=== PATIENT | female | born 1935 | race Caucasian/White ===

== ENCOUNTER 2019-04-10 15:36 | Emergency (ER) | payer OTHER, MEDICARE ==
[~2019-04-10] VITALS: Ht 167.6 cm; Wt 61.8 kg
[2019-04-10 16:13] LABS: BASOPHILS % (AUTO) 0.6 % (0-1); EOSINOPHILS # (AUTO) 0.1 X10'3 (0-0.9); EOSINOPHILS % (AUTO) 3.2 % (0-6); HEMATOCRIT 39.1 % (35.0-45.0); HEMOGLOBIN 13.5 g/dl (12.0-16.0); LYMPHOCYTES # (AUTO) 1.5 X10'3 (1.1-4.8); LYMPHOCYTES % (AUTO) 32.2 % (21-51); MEAN CORPUSCULAR HEMOGLOBIN 30.5 PG (27.0-31.0); MEAN CORPUSCULAR HGB CONC 34.5 g/dL (33.0-36.5); MEAN CORPUSCULAR VOLUME 88.2 FL (78-98); MEAN PLATELET VOLUME 7.3 FL (7.4-10.4); MONOCYTES # (AUTO) 0.4 X10'3 (0-0.9); MONOCYTES % (AUTO) 7.8 % (2-12); NEUTROPHILS # (AUTO) 2.6 X10'3 (1.8-7.7); NEUTROPHILS % (AUTO) 56.2 % (42-75); PLATELET COUNT 271 X10'3 (140-440); RED BLOOD COUNT 4.44 X10'6 (4.20-5.60); RED CELL DISTRIBUTION WIDTH 13.7 % (11.5-14.5); WHITE BLOOD COUNT 4.6 X10'3 (4.5-11.0)
[2019-04-10 16:28] LABS: PARTIAL THROMBOPLASTIN TIME 24 SECONDS (22-32)
[2019-04-10 16:31] LABS: ANION GAP 8 (8-16); BILIRUBIN,TOTAL 0.3 MG/DL (0.1-1.0); BLOOD UREA NITROGEN 21 MG/DL (7-18); BUN/CREATININE RATIO 20.8 (6.6-38.0); CALCIUM 9.3 MG/DL (8.5-10.1); CHLORIDE 102 MMOL/L (99-107); CREATININE 1.01 MG/DL (0.40-0.90); GLUCOSE 176 MG/DL (70-104); POTASSIUM 3.7 MMOL/L (3.5-5.1); SODIUM 139 MMOL/L (135-145); TOTAL CARBON DIOXIDE 29.1 MMOL/L (24-32); eGFR 52 ML/MIN
[2019-04-10 16:32] LABS: ALANINE AMINOTRANSFERASE 27 U/L (12-78); ALBUMIN 3.7 G/DL (3.4-5.0); ALKALINE PHOSPHATASE 28 IU/L (46-116); ASPARTATE AMINO TRANSFERASE 26 U/L (10-37); TOTAL PROTEIN 7.3 G/DL (6.4-8.2)
[2019-04-10] MEDS ORDERED: ondansetron/PF 4mg/2ml inj IV ONE (18:30)
[2019-04-10] MEDS ORDERED: normal saline 1000ML IV soln IVB ONE (18:30)
[2019-04-10] MEDS ORDERED: LORazepam 2 mg/ml vial IV ONE (18:30)
[2019-04-10] MEDS ORDERED: TRAM50TA2 PO (20:02)
[2019-04-10] MEDS ORDERED: CYCL-1 PO (20:02)
[2019-04-10] MEDS ORDERED: NAPR-56 PO (20:02)
[2019-04-10 20:25] VITALS: BP 142/63
== END 2019-04-10 20:27 | disposition home or self-care (01) ==
LOC: ER 15:36
DX: M62.830 Muscle spasm of back (principal); M54.6 Pain in thoracic spine; R07.89 Other chest pain; Z88.1 Allergy status to other antibiotic agents; Z88.8 Allergy status to other drugs, medicaments and biological substances; Z79.899 Other long term (current) drug therapy; W01.0XXA Fall on same level from slipping, tripping and stumbling without subsequent striking against object, initial encounter; Y93.89 Activity, other specified; Y92.89 Other specified places as the place of occurrence of the external cause; Y99.8 Other external cause status
CPT/HCPCS: 36415; 70450; 71045; 72125; 72128; 80053; 84484; 85025; 85610; 85730; 93005; 96374; 96375; 99284; J2060; J2405; J7030

== ENCOUNTER 2019-07-30 09:45 | Day surgery (SDC) | payer OTHER ==
[2019-07-29 10:38] LABS: BASOPHILS % (AUTO) 0.7 % (0-1); EOSINOPHILS # (AUTO) 0.1 X10'3 (0-0.9); EOSINOPHILS % (AUTO) 3.5 % (0-6); HEMATOCRIT 42.7 % (35.0-45.0); HEMOGLOBIN 14.5 g/dl (12.0-16.0); LYMPHOCYTES % (AUTO) 26.3 % (21-51); MEAN CORPUSCULAR HEMOGLOBIN 28.9 PG (27.0-31.0); MEAN CORPUSCULAR HGB CONC 33.9 g/dL (33.0-36.5); MEAN CORPUSCULAR VOLUME 85.3 FL (78-98); MEAN PLATELET VOLUME 7.5 FL (7.4-10.4); MONOCYTES # (AUTO) 0.4 X10'3 (0-0.9); MONOCYTES % (AUTO) 9.8 % (2-12); NEUTROPHILS # (AUTO) 2.3 X10'3 (1.8-7.7); NEUTROPHILS % (AUTO) 59.7 % (42-75); PLATELET COUNT 260 X10'3 (140-440); RED BLOOD COUNT 5.01 X10'6 (4.20-5.60); RED CELL DISTRIBUTION WIDTH 13.6 % (11.5-14.5); WHITE BLOOD COUNT 3.8 X10'3 (4.5-11.0)
[2019-07-29 10:47] LABS: PARTIAL THROMBOPLASTIN TIME 26 SECONDS (22-32)
[2019-07-29 10:50] LABS: ALBUMIN 3.8 G/DL (3.4-5.0); ANION GAP 6 (8-16); BLOOD UREA NITROGEN 20 MG/DL (7-18); BUN/CREATININE RATIO 25.3 (6.6-38.0); CALCIUM 9.5 MG/DL (8.5-10.1); CHLORIDE 103 MMOL/L (99-107); CREATININE 0.79 MG/DL (0.40-0.90); GLUCOSE 127 MG/DL (70-104); POTASSIUM 3.7 MMOL/L (3.5-5.1); SODIUM 142 MMOL/L (135-145); TOTAL CARBON DIOXIDE 32.7 MMOL/L (24-32); eGFR 69 ML/MIN
[~2019-07-30] VITALS: Ht 167.6 cm; Wt 61.5 kg
[2019-07-30] VITALS (10 sets, daily range): BP systolic 116–161; BP diastolic 56–92
[~2019-07-30 09:45] MED LIST: CYCL-1 PO
[2019-07-30] MEDS ORDERED: ceFAZolin inj. 2,000 MG in dextrose 5%-water 100 ML IV ONE (10:20)
[2019-07-30] MEDS ORDERED: METF500T20 PO (11:24)
[2019-07-30] MEDS ORDERED: ASPI81TA52 PO (11:24)
[2019-07-30] MEDS ORDERED: MV-M1TAB19 PO (11:24)
[2019-07-30] MEDS ORDERED: CARV6.253 PO (11:24)
[2019-07-30] MEDS ORDERED: ESOM40CA49 PO (11:24)
[2019-07-30] MEDS ORDERED: BIOT5000 PO (11:24)
[2019-07-30] MEDS ORDERED: LISI1TAB28 PO (11:24)
[2019-07-30] MEDS ORDERED: NITR0.4T51 SL (11:24)
[2019-07-30] MEDS ORDERED: OMEG1CAP2 PO (11:24)
[2019-07-30] MEDS ORDERED: ROSU10TA2 PO (11:24)
[2019-07-30] MEDS ORDERED: MELO-102 PO (11:24)
[2019-07-30] MEDS ORDERED: FLEC100T2 PO (11:24)
[2019-07-30] MEDS ORDERED: MULT-1141 PO (11:24)
[2019-07-30] MEDS ORDERED: LIDOcaine 1% W/epiNEPHrine 1:100,000 20ml vial ONE (13:39)
[2019-07-30] MEDS ORDERED: midazolam 2 mg/2 ml injection ONE (13:39)
[2019-07-30] MEDS ORDERED: fentaNYL/PF 50MCG/1 ML 2ML syringe ONE (13:39)
== END 2019-07-30 19:28 | disposition home or self-care (01) ==
LOC: SSTAY O 09:45
PROVIDERS: ATTEND Internal Medicine Cardiovascular Disease
DX: Z45.010 Encounter for checking and testing of cardiac pacemaker pulse generator [battery] (principal); I25.10 Atherosclerotic heart disease of native coronary artery without angina pectoris; I10 Essential (primary) hypertension; E78.5 Hyperlipidemia, unspecified; I49.5 Sick sinus syndrome; Z79.899 Other long term (current) drug therapy; Z79.82 Long term (current) use of aspirin; Z79.01 Long term (current) use of anticoagulants
CPT/HCPCS: 33228; 36415; 80048; 82948; 85025; 85610; 85730; 93005; 99152; 99153; C1785; J2250; J3010; A4620; A6449

== ENCOUNTER 2020-07-06 20:53 | Emergency (ER) | payer OTHER ==
[~2020-07-06] VITALS: Ht 167.6 cm; Wt 65.0 kg
[~2020-07-06 20:53] MED LIST changes: +ASPI81TA52 PO; +BIOT5000 PO; +CARV6.253 PO; -CYCL-1 PO; +ESOM40CA49 PO; +FLEC100T2 PO; +LISI1TAB51 PO; +MELO-102 PO; +METF-900 PO; +MULT-1141 PO; +MV-M1TAB19 PO; +NITR0.4T51 SL; +OMEG1CAP2 PO; +ROSU10TA2 PO
--- NOTE | 2020-07-06 20:58 | NUR ---
MAYELA SÁNCHEZ(DAUGHTER)[phone] PLEASE CONTACT WITH UPDATES WHEN AVAILABLE TO DO SO
[2020-07-06 21:39] LABS: BASOPHILS % (AUTO) 0.4 % (0-1); EOSINOPHILS # (AUTO) 0.2 X10'3 (0-0.9); EOSINOPHILS % (AUTO) 1.8 % (0-6); HEMATOCRIT 41.3 % (35.0-45.0); HEMOGLOBIN 13.7 g/dl (12.0-16.0); LYMPHOCYTES # (AUTO) 1.5 X10'3 (1.1-4.8); LYMPHOCYTES % (AUTO) 15.5 % (21-51); MEAN CORPUSCULAR HEMOGLOBIN 29.3 PG (27.0-31.0); MEAN CORPUSCULAR HGB CONC 33.2 g/dL (33.0-36.5); MEAN CORPUSCULAR VOLUME 88.1 FL (78-98); MEAN PLATELET VOLUME 7.3 FL (7.4-10.4); MONOCYTES # (AUTO) 0.7 X10'3 (0-0.9); MONOCYTES % (AUTO) 7.4 % (2-12); NEUTROPHILS # (AUTO) 7.3 X10'3 (1.8-7.7); NEUTROPHILS % (AUTO) 74.9 % (42-75); PLATELET COUNT 262 X10'3 (140-440); RED BLOOD COUNT 4.69 X10'6 (4.20-5.60); RED CELL DISTRIBUTION WIDTH 13.7 % (11.5-14.5); WHITE BLOOD COUNT 9.8 X10'3 (4.5-11.0)
[2020-07-06 21:52] LABS: ALANINE AMINOTRANSFERASE 22 U/L (12-78); ALBUMIN 3.5 G/DL (3.4-5.0); ALBUMIN/GLOBULIN RATIO 0.9 (1.1-1.5); ALKALINE PHOSPHATASE 47 IU/L (46-116); ANION GAP 7 (8-16); ASPARTATE AMINO TRANSFERASE 15 U/L (10-37); BILIRUBIN,TOTAL 0.3 MG/DL (0.1-1.0); BLOOD UREA NITROGEN 25 MG/DL (7-18); BUN/CREATININE RATIO 28.1 (6.6-38.0); CALCIUM 9.5 MG/DL (8.5-10.1); CHLORIDE 102 MMOL/L (99-107); CREATININE 0.89 MG/DL (0.40-0.90); GLUCOSE 176 MG/DL (70-104); LIPASE 188 U/L (73-393); POTASSIUM 4.3 MMOL/L (3.5-5.1); SODIUM 139 MMOL/L (135-145); TOTAL CARBON DIOXIDE 29.8 MMOL/L (24-32); TOTAL PROTEIN 7.2 G/DL (6.4-8.2); eGFR 60 ML/MIN
[2020-07-06 22:41] LABS: CLARITY,URINE CLEAR (Clear); COLOR,URINE YELLOW (Yellow); GLUCOSE, URINE NEGATIVE (Neg); KETONES,URINE TRACE mg/dl (Neg); LEUKOCYTE ESTERASE ,URINE TRACE (Neg); NITRITES, URINE NEGATIVE (Neg); OCCULT BLOOD,URINE NEGATIVE (Neg); PH,URINE 5.5 (4.8-8.0); PROTEIN,URINE NEGATIVE (Neg); UA COLLECTION TYPE CLN CATCH MIDSTREAM; UROBILINOGEN,URINE 0.2 E.U/dL (0.2-1.0)
[2020-07-06 22:48] LABS: BACTERIA,URINE NONE SEEN /HPF (Neg); RBC,URINE NONE SEEN /HPF (0-2); SQUAMOUS EPITHELIAL CELL,UR FEW /LPF (FEW); WBC,URINE 0-4 /HPF (0-4)
[2020-07-06] MEDS ORDERED: ondansetron/PF 4mg/2ml inj IV ONE (22:55)
[2020-07-06] MEDS ORDERED: morphine 4 MG/ML inj SYRINge IV ONE (22:55)
[2020-07-06] MEDS ORDERED: diphenhydrAMINE 50 mg/ml inj IV ONE (23:10)
[2020-07-07] MEDS ORDERED: piperacillin/tazo 3.375gm/50ml 50 ML IV ONE (00:25)
[2020-07-07] MEDS ORDERED: HYDROcodone/acetaminophen 5mg/325mg tablet PO ONE (00:45)
[2020-07-07] MEDS ORDERED: normal saline 1000ml 1,000 ML IV ONE (00:45)
[2020-07-07] MEDS ORDERED: ketorolac trometh. 30mg/ml inj. IV ONE (00:45)
[2020-07-07] MEDS ORDERED: fentaNYL/PF 50MCG/1 ML 2ML syringe IV ONE (02:10)
[2020-07-07] MEDS ORDERED: AMOX-117 PO (03:09)
[2020-07-07] MEDS ORDERED: HYDR-3965 PO (03:09)
[2020-07-07] MEDS ORDERED: ONDA4TAB6 PO (03:09)
[2020-07-07 03:54] VITALS: BP 114/55
== END 2020-07-07 03:57 | disposition home or self-care (01) ==
LOC: ER 20:54
DX: K57.92 Diverticulitis of intestine, part unspecified, without perforation or abscess without bleeding (principal); I48.91 Unspecified atrial fibrillation; K21.9 Gastro-esophageal reflux disease without esophagitis; I10 Essential (primary) hypertension; E11.9 Type 2 diabetes mellitus without complications; G89.29 Other chronic pain; Z90.49 Acquired absence of other specified parts of digestive tract; Z88.8 Allergy status to other drugs, medicaments and biological substances; Z88.5 Allergy status to narcotic agent; Z88.1 Allergy status to other antibiotic agents; Z79.82 Long term (current) use of aspirin; Z79.84 Long term (current) use of oral hypoglycemic drugs; Z79.899 Other long term (current) drug therapy
CPT/HCPCS: 36415; 74176; 80053; 81001; 83690; 85025; 87088; 96361; 96365; 96375; 99285; J1200; J1885; J2270; J2405; J2543; J3010; J7030

== ENCOUNTER 2021-04-18 10:47 | Inpatient (IN) | payer OTHER ==
[~2021-04-18] VITALS: Ht 167.6 cm; Wt 62.7 kg
[~2021-04-18 10:47] MED LIST changes: +CARV12.545 PO; -CARV6.253 PO; +CHOL100025 PO; -ESOM40CA49 PO; +GABA300C PO; +HYDR25TA5 PO; -LISI1TAB51 PO; -MELO-102 PO; -MV-M1TAB19 PO; +PANT40TA54 PO; +POTA-197 PO
[2021-04-18 11:34] LABS: BASOPHILS % (AUTO) 0.4 % (0-1); EOSINOPHILS # (AUTO) 0.1 X10'3 (0-0.9); EOSINOPHILS % (AUTO) 1.1 % (0-6); HEMATOCRIT 43.7 % (35.0-45.0); HEMOGLOBIN 15.1 g/dl (12.0-16.0); LYMPHOCYTES # (AUTO) 1.2 X10'3 (1.1-4.8); LYMPHOCYTES % (AUTO) 15.7 % (21-51); MEAN CORPUSCULAR HEMOGLOBIN 29.7 PG (27.0-31.0); MEAN CORPUSCULAR HGB CONC 34.5 g/dL (33.0-36.5); MEAN CORPUSCULAR VOLUME 86.3 FL (78-98); MEAN PLATELET VOLUME 7.2 FL (7.4-10.4); MONOCYTES # (AUTO) 0.5 X10'3 (0-0.9); MONOCYTES % (AUTO) 6.6 % (2-12); NEUTROPHILS % (AUTO) 76.2 % (42-75); PLATELET COUNT 295 X10'3 (140-440); RED BLOOD COUNT 5.06 X10'6 (4.20-5.60); RED CELL DISTRIBUTION WIDTH 13.5 % (11.5-14.5); WHITE BLOOD COUNT 7.9 X10'3 (4.5-11.0)
[2021-04-18 11:42] LABS: ALANINE AMINOTRANSFERASE 21 U/L (12-78); ALBUMIN 4.1 G/DL (3.4-5.0); ALBUMIN/GLOBULIN RATIO 1.1 (1.1-1.5); ALKALINE PHOSPHATASE 41 IU/L (46-116); ANION GAP 8 (8-16); ASPARTATE AMINO TRANSFERASE 18 U/L (10-37); BILIRUBIN,TOTAL 0.5 MG/DL (0.1-1.0); BLOOD UREA NITROGEN 21 MG/DL (7-18); BUN/CREATININE RATIO 23.6 (6.6-38.0); CHLORIDE 101 MMOL/L (99-107); CREATININE 0.89 MG/DL (0.40-0.90); GLUCOSE 160 MG/DL (70-104); LIPASE 133 U/L (73-393); POTASSIUM 4.7 MMOL/L (3.5-5.1); SODIUM 138 MMOL/L (135-145); TOTAL CARBON DIOXIDE 28.9 MMOL/L (24-32); eGFR 60 ML/MIN
--- NOTE | 2021-04-18 14:00 | NUR ---
Pt c/o n/v and abd pain (shavonne umbilical) x several hours.
[2021-04-18] MEDS ORDERED: pantoprazole 40 MG vial IV ONE (14:55)
[2021-04-18] MEDS ORDERED: normal saline 1000ML IV soln IVB ONE (14:55)
[2021-04-18] MEDS ORDERED: morphine 2 MG/ML inj. syringe IV PRN ×2 (14:55→18:00)
[2021-04-18] MEDS ORDERED: iohexol 300mg/ml 100ml inj. ONE (15:21)
[2021-04-18] MEDS ORDERED: MESSAGE TO NURSING PO ONE (15:45)
[2021-04-18 17:40] LABS: COLOR,URINE Yellow (Yellow); UA COLLECTION TYPE STRAIGHT CATH
[2021-04-18 17:41] LABS: CLARITY,URINE CLEAR (Clear); GLUCOSE, URINE Negative (Neg); KETONES,URINE Negative (Neg); LEUKOCYTE ESTERASE ,URINE NEGATIVE (Neg); NITRITES, URINE NEGATIVE (Neg); OCCULT BLOOD,URINE Trace (Neg); PROTEIN,URINE Negative (Neg); UROBILINOGEN,URINE 0.2 E.U/dL (0.2-1.0)
[2021-04-18 17:49] LABS: BACTERIA,URINE NONE SEEN /HPF (Neg); RBC,URINE 0-2 /HPF (0-2); SQUAMOUS EPITHELIAL CELL,UR FEW /LPF (FEW); WBC,URINE NONE SEEN /HPF (0-4)
[2021-04-18] MEDS ORDERED: potassium Cl 40MEQ/1/2NS 520ml 520 ML IV PRN ×2 (18:00)
[2021-04-18] MEDS ORDERED: magnesium 4gm in 100ml NS 100 ML IV PRN (18:00)
[2021-04-18] MEDS ORDERED: magnesium hydroxide 30ml (MOM) UD suspension PO PRN (18:00)
[2021-04-18] MEDS ORDERED: mag hydrox/Alum hydrox/simeth 30ml oral suspension PO PRN (18:00)
[2021-04-18] MEDS ORDERED: potassium Cl 20 mEq SR tablet PO PRN ×2 (18:00)
[2021-04-18] MEDS ORDERED: magnesium Cl slow-release 64mg tablet PO PRN (18:00)
[2021-04-18] MEDS ORDERED: acetaminophen 325mg tablet PO PRN (18:00)
[2021-04-18] MEDS ORDERED: magnesium 2GM in 50ml NS 50 ML IV PRN (18:00)
[2021-04-18] MEDS ORDERED: dextrose ORAL solution 15 GM/59 ML bottle PO PRN ×2 (18:10)
[2021-04-18] MEDS ORDERED: glucagon, human recombinant 1mg kit SUBCUT PRN (18:10)
[2021-04-18] MEDS ORDERED: dextrose 50%-water 50ml dispensing syringe IV PRN ×2 (18:10)
[2021-04-18] MEDS ORDERED: MESSAGE TO PHARMACY PO ONE (18:10)
[2021-04-18] MEDS ORDERED: insulin Lispro (HumaLOG) vial - multi-dose SQ SCH (18:10)
[2021-04-18 18:34] LABS: HEMOGLOBIN A1C 7.1 % (4.5-6.2)
[2021-04-18] MEDS ORDERED: MELO-102 PO (19:19)
[2021-04-18] MEDS ORDERED: LISI1TAB51 PO (19:19)
[2021-04-18] MEDS: dextrose 5%-1/2 normal saline 1,000 ML IV SCH (19:25)
[2021-04-18] MEDS ORDERED: HYDROmorphone inj. 0.5 MG/0.5 ML DISP.SYRIN IV ONE (19:30)
[2021-04-18] MEDS: ondansetron/PF 4mg/2ml inj IV PRN (19:43)
[2021-04-18] MEDS: K and/or MAG REPLACEMENT MC SCH (20:00)
[2021-04-18] MEDS: insulin glargine (Lantus) pen - multi-dose SQ SCH (20:02)
[2021-04-18] MEDS: enoxaparin 40mg/0.4ml syringe SQ SCH (21:29)
[2021-04-18] MEDS: docusate sod 100mg capsule PO SCH (21:29)
--- NOTE | 2021-04-18 22:43 | NUR ---
Attempted to give report to Surg Floor. Nurse is with another patient. He will return my call.
--- NOTE | 2021-04-18 22:56 | NUR ---
Report given to ANUSHKA Carey on the Surg Floor.
[2021-04-19] VITALS: BP 115/58
[2021-04-19] MEDS: ondansetron/PF 4mg/2ml inj IV PRN (03:53)
--- NOTE | 2021-04-19 05:00 | NUR ---
Patient [id number]. C/O abdominal pain 9/10 and nausea and vomiting. Medicated x 1 with Zofran and Morphine with positive result. Abdomen lightly distended, bowel sounds present but not passing gas reported by patient. BS 162 on admission. Status NPO and patient made aware. Safety and comfort measures maintained. Will continue to monitor as per plan of care.
[2021-04-19 06:00] VITALS: BP 105/50
[2021-04-19 07:59] LABS: BASOPHILS % (AUTO) 0.4 % (0-1); EOSINOPHILS % (AUTO) 0.3 % (0-6); LYMPHOCYTES # (AUTO) 1.5 X10'3 (1.1-4.8); LYMPHOCYTES % (AUTO) 23.7 % (21-51); MEAN CORPUSCULAR HEMOGLOBIN 29.4 PG (27.0-31.0); MEAN CORPUSCULAR HGB CONC 34.1 g/dL (33.0-36.5); MEAN CORPUSCULAR VOLUME 86.1 FL (78-98); MEAN PLATELET VOLUME 7.6 FL (7.4-10.4); MONOCYTES # (AUTO) 0.7 X10'3 (0-0.9); MONOCYTES % (AUTO) 10.2 % (2-12); NEUTROPHILS # (AUTO) 4.2 X10'3 (1.8-7.7); NEUTROPHILS % (AUTO) 65.4 % (42-75); PLATELET COUNT 253 X10'3 (140-440); RED BLOOD COUNT 4.76 X10'6 (4.20-5.60); RED CELL DISTRIBUTION WIDTH 13.6 % (11.5-14.5); WHITE BLOOD COUNT 6.5 X10'3 (4.5-11.0)
[2021-04-19] MEDS: docusate sod 100mg capsule PO SCH ×2 (08:00→20:10)
[2021-04-19] MEDS: K and/or MAG REPLACEMENT MC SCH ×2 (08:00→20:00)
[2021-04-19 08:37] LABS: ALANINE AMINOTRANSFERASE 16 U/L (12-78); ALBUMIN 3.3 G/DL (3.4-5.0); ALKALINE PHOSPHATASE 40 IU/L (46-116); ANION GAP 11 (8-16); ASPARTATE AMINO TRANSFERASE 15 U/L (10-37); BILIRUBIN,TOTAL 0.5 MG/DL (0.1-1.0); BLOOD UREA NITROGEN 25 MG/DL (7-18); BUN/CREATININE RATIO 27.2 (6.6-38.0); CALCIUM 8.9 MG/DL (8.5-10.1); CHLORIDE 104 MMOL/L (99-107); CHOLESTEROL 127 MG/DL (0-200); CREATININE 0.92 MG/DL (0.40-0.90); GLUCOSE 164 MG/DL (70-104); HDL CHOLESTEROL 43 MG/DL (35-60); LDL CHOLESTEROL 63 MG/DL (50-100); MAGNESIUM 1.7 MG/DL (1.5-2.4); SODIUM 140 MMOL/L (135-145); TOTAL CARBON DIOXIDE 25.3 MMOL/L (24-32); TOTAL PROTEIN 6.6 G/DL (6.4-8.2); TRIGLYCERIDES 146 MG/DL (20-135); eGFR 58 ML/MIN
--- NOTE | 2021-04-19 09:53 | NUR ---
Diabetes Consult: A1C 7.1 well controlled and appropriate for age, DM education not indicated at this time, will continue to monitor. Addendum: 04/19/21 at [address] Amended: Links added.
[2021-04-19 10:00] VITALS: BP 103/53
--- NOTE | 2021-04-19 10:00 | NUR ---
Dr Snider: okay to hold insulin under blood glucose of 200
[2021-04-19] MEDS: dextrose 5%-1/2 normal saline 1,000 ML IV SCH ×2 (10:54→20:10)
--- NOTE | 2021-04-19 15:29 | NUR ---
PAGER ID: [phone] MESSAGE: Rodrigo Levi, Lazaro: need pain meds ordered still
[2021-04-19] MEDS ORDERED: fentaNYL/PF 50MCG/1 ML 2ML syringe IV PRN (15:45)
[2021-04-19] MEDS: HYDROmorphone/PF 0.2 MG/ML SYRINGE IV PRN ×3 (16:42→23:06)
--- NOTE | 2021-04-19 16:55 | NUR ---
PAGER ID: [phone] MESSAGE: [id number] Amita Lazaro: iv infiltrated.. can we do one time im toradol? She is a hard iv stick and is in a lot of pain 03/04
[2021-04-19] MEDS ORDERED: ketorolac tromethamine 15mg/ml inj. IV ONE (17:05)
[2021-04-19 20:00] VITALS: BP 118/51
[2021-04-19] MEDS: enoxaparin 40mg/0.4ml syringe SQ SCH (20:14)
[2021-04-19] MEDS: insulin glargine (Lantus) pen - multi-dose SQ SCH (21:00)
[2021-04-20 00:06] VITALS: BP 105/47
[2021-04-20] MEDS: HYDROmorphone/PF 0.2 MG/ML SYRINGE IV PRN ×2 (05:20→11:43)
--- NOTE | 2021-04-20 05:49 | NUR ---
In bed C/O abdominal pain #9/10 medicated x 2 during shift. Abdomen tender to touch, bowel sounds present, no passing gas reported , but patient verbalized some relief from the abdomen sourness compare to yesterday 04/19/2021. No C/O nausea and vomiting at this time. No S/S of hypo/hyperglycemic reaction at this time. Safety and comfort measures maintained. Will continue
[2021-04-20 06:14] LABS: BASOPHILS % (AUTO) 0.3 % (0-1); EOSINOPHILS # (AUTO) 0.1 X10'3 (0-0.9); EOSINOPHILS % (AUTO) 1.3 % (0-6); HEMATOCRIT 39.4 % (35.0-45.0); HEMOGLOBIN 13.3 g/dl (12.0-16.0); LYMPHOCYTES # (AUTO) 1.3 X10'3 (1.1-4.8); LYMPHOCYTES % (AUTO) 23.2 % (21-51); MEAN CORPUSCULAR HEMOGLOBIN 29.3 PG (27.0-31.0); MEAN CORPUSCULAR HGB CONC 33.6 g/dL (33.0-36.5); MEAN CORPUSCULAR VOLUME 87.2 FL (78-98); MEAN PLATELET VOLUME 7.5 FL (7.4-10.4); MONOCYTES # (AUTO) 0.6 X10'3 (0-0.9); MONOCYTES % (AUTO) 11.3 % (2-12); NEUTROPHILS # (AUTO) 3.7 X10'3 (1.8-7.7); NEUTROPHILS % (AUTO) 63.9 % (42-75); PLATELET COUNT 246 X10'3 (140-440); RED BLOOD COUNT 4.52 X10'6 (4.20-5.60); RED CELL DISTRIBUTION WIDTH 13.8 % (11.5-14.5); WHITE BLOOD COUNT 5.7 X10'3 (4.5-11.0)
[2021-04-20 06:42] LABS: ALANINE AMINOTRANSFERASE 15 U/L (12-78); ALBUMIN/GLOBULIN RATIO 0.9 (1.1-1.5); ALKALINE PHOSPHATASE 35 IU/L (46-116); ANION GAP 10 (8-16); ASPARTATE AMINO TRANSFERASE 15 U/L (10-37); BILIRUBIN,TOTAL 0.7 MG/DL (0.1-1.0); BLOOD UREA NITROGEN 31 MG/DL (7-18); BUN/CREATININE RATIO 27.9 (6.6-38.0); CALCIUM 8.5 MG/DL (8.5-10.1); CHLORIDE 103 MMOL/L (99-107); CREATININE 1.11 MG/DL (0.40-0.90); GLUCOSE 128 MG/DL (70-104); MAGNESIUM 1.7 MG/DL (1.5-2.4); SODIUM 138 MMOL/L (135-145); TOTAL CARBON DIOXIDE 25.3 MMOL/L (24-32); TOTAL PROTEIN 6.4 G/DL (6.4-8.2); eGFR 47 ML/MIN
[2021-04-20 08:00] VITALS: BP 125/55
[2021-04-20] MEDS: docusate sod 100mg capsule PO SCH ×2 (08:00→20:21)
[2021-04-20] MEDS: K and/or MAG REPLACEMENT MC SCH ×2 (08:14→20:00)
[2021-04-20] MEDS ORDERED: nitroGLYCERIN 0.4mg SUBLingual tab SL PRN (08:15)
[2021-04-20] MEDS: diatr meglu/diatrizoate 30ml oral sol.-(3 dose) bottle PO SCH ×4 (10:19→17:55)
--- NOTE | 2021-04-20 10:36 | NUR ---
PAGER ID: [phone] MESSAGE: Rodriog Levi Lazaro: Patient in pain 9 abdomen, requesting pain meds. Not due for dilaudid yet.
--- NOTE | 2021-04-20 10:53 | NUR ---
PAGER ID: [phone] MESSAGE: Rodrigo Levi Lazaro: Patient stating you told her she shouldnt take the oral contrast? Can you call me(Arian) Ext: [phone]
[2021-04-20 11:00] VITALS: BP 135/62
--- NOTE | 2021-04-20 11:00 | NUR ---
Spoke to Dr Snider regarding patients concern not to take oral contrast. Dr Snider instructed me not to give oral contrast and to wait for her to call back.
[2021-04-20] MEDS ORDERED: diatr meglu/diatrizoate 30ml oral sol.-(3 dose) bottle PO SCH (12:00)
--- NOTE | 2021-04-20 13:00 | NUR ---
PAGER ID: [phone] MESSAGE: Rodrigo Levi Lazaro: Still waiting to hear back if you want me to give oral contrast
--- NOTE | 2021-04-20 13:34 | NUR ---
PAGER ID: [phone] MESSAGE: Rodrigo Levi Lazaro: Patient in 03/04 pain after recieving dilaudid less than 2 hours ago. Is there anything else that can be ordered for pain?
[2021-04-20] MEDS ORDERED: ketorolac tromethamine 15mg/ml inj. IV SCH (13:39)
[2021-04-20] MEDS: carVEDilol 12.5mg tablet PO SCH (17:55)
[2021-04-20 18:00] VITALS: BP 110/55
[2021-04-20] MEDS ORDERED: iohexol 300mg/ml 100ml inj. ONE (18:44)
[2021-04-20] MEDS: dextrose 5%-1/2 normal saline 1,000 ML IV SCH (20:00)
[2021-04-20] MEDS: ketorolac tromethamine 15mg/ml inj. IV PRN (20:22)
[2021-04-20] MEDS: flecainide 50mg tablet PO SCH (20:23)
[2021-04-20] MEDS: insulin glargine (Lantus) pen - multi-dose SQ SCH (21:00)
[2021-04-21] VITALS: BP 90/45
[2021-04-21 06:16] LABS: BASOPHILS % (AUTO) 0.4 % (0-1); EOSINOPHILS # (AUTO) 0.2 X10'3 (0-0.9); EOSINOPHILS % (AUTO) 4.6 % (0-6); HEMATOCRIT 36.7 % (35.0-45.0); HEMOGLOBIN 12.4 g/dl (12.0-16.0); LYMPHOCYTES # (AUTO) 1.2 X10'3 (1.1-4.8); LYMPHOCYTES % (AUTO) 31.6 % (21-51); MEAN CORPUSCULAR HEMOGLOBIN 29.4 PG (27.0-31.0); MEAN CORPUSCULAR HGB CONC 33.7 g/dL (33.0-36.5); MEAN CORPUSCULAR VOLUME 87.4 FL (78-98); MEAN PLATELET VOLUME 7.2 FL (7.4-10.4); MONOCYTES # (AUTO) 0.4 X10'3 (0-0.9); MONOCYTES % (AUTO) 9.7 % (2-12); NEUTROPHILS # (AUTO) 2.1 X10'3 (1.8-7.7); NEUTROPHILS % (AUTO) 53.7 % (42-75); PLATELET COUNT 222 X10'3 (140-440); RED CELL DISTRIBUTION WIDTH 13.7 % (11.5-14.5); WHITE BLOOD COUNT 3.9 X10'3 (4.5-11.0)
--- NOTE | 2021-04-21 06:41 | NUR ---
Patient in room [facility]. I have received report from Shane REVELES and had the opportunity to ask questions and assume patient care.
[2021-04-21 06:59] LABS: ALANINE AMINOTRANSFERASE 11 U/L (12-78); ALBUMIN 2.8 G/DL (3.4-5.0); ALBUMIN/GLOBULIN RATIO 0.9 (1.1-1.5); ALKALINE PHOSPHATASE 34 IU/L (46-116); ANION GAP 9 (8-16); ASPARTATE AMINO TRANSFERASE 13 U/L (10-37); BILIRUBIN,TOTAL 0.6 MG/DL (0.1-1.0); BLOOD UREA NITROGEN 23 MG/DL (7-18); BUN/CREATININE RATIO 29.1 (6.6-38.0); CALCIUM 8.2 MG/DL (8.5-10.1); CHLORIDE 105 MMOL/L (99-107); CREATININE 0.79 MG/DL (0.40-0.90); GLUCOSE 118 MG/DL (70-104); MAGNESIUM 1.8 MG/DL (1.5-2.4); POTASSIUM 3.7 MMOL/L (3.5-5.1); SODIUM 138 MMOL/L (135-145); TOTAL CARBON DIOXIDE 24.2 MMOL/L (24-32); TOTAL PROTEIN 5.8 G/DL (6.4-8.2); eGFR 69 ML/MIN
[2021-04-21] MEDS: carVEDilol 12.5mg tablet PO SCH ×2 (07:28→17:29)
[2021-04-21] MEDS: docusate sod 100mg capsule PO SCH ×2 (07:28→19:42)
[2021-04-21] MEDS: atorvastatin 20mg tablet PO SCH (07:28)
[2021-04-21] MEDS: flecainide 50mg tablet PO SCH ×2 (07:29→19:42)
[2021-04-21 08:00] VITALS: BP 128/64
[2021-04-21] MEDS: ketorolac tromethamine 15mg/ml inj. IV PRN ×3 (08:36→20:25)
[2021-04-21 12:00] VITALS: BP 141/67
--- NOTE | 2021-04-21 13:00 | NUR ---
Patient given apple sauce/ apple juice. she was able to tolerate it . Regular diet ordered per MD, will continue to monitor patient.
[2021-04-21] MEDS: dextrose 5%-1/2 normal saline 1,000 ML IV SCH (14:43)
--- NOTE | 2021-04-21 16:51 | NUR ---
PAGER ID: [phone] MESSAGE: Pt Lazaro A: [id number]: Patient able to drink apple juice/sauce but reported abdominal pain after given a regular diet for lunch. Rated pain to be 7. Do you still want to discharge her Marilyn [phone]
--- NOTE | 2021-04-21 17:30 | NUR ---
OK for patient to stay per dr. Snider
[2021-04-21 18:00] VITALS: BP 155/67
--- NOTE | 2021-04-21 19:16 | NUR ---
Problems reprioritized. Patient report given, questions answered & plan of care reviewed with Shane REVELES.
[2021-04-21] MEDS: K and/or MAG REPLACEMENT MC SCH (19:40)
[2021-04-21] MEDS: insulin glargine (Lantus) pen - multi-dose SQ SCH (21:00)
[2021-04-22] VITALS: BP 139/65
--- NOTE | 2021-04-22 06:25 | NUR ---
Patient in room [facility]. I have received report from Shane REVELES and had the opportunity to ask questions and assume patient care.
[2021-04-22 06:29] LABS: BASOPHILS % (AUTO) 0.5 % (0-1); EOSINOPHILS # (AUTO) 0.1 X10'3 (0-0.9); EOSINOPHILS % (AUTO) 3.2 % (0-6); HEMATOCRIT 34.9 % (35.0-45.0); LYMPHOCYTES % (AUTO) 22.8 % (21-51); MEAN CORPUSCULAR HEMOGLOBIN 29.4 PG (27.0-31.0); MEAN CORPUSCULAR HGB CONC 34.5 g/dL (33.0-36.5); MEAN CORPUSCULAR VOLUME 85.3 FL (78-98); MEAN PLATELET VOLUME 7.1 FL (7.4-10.4); MONOCYTES # (AUTO) 0.5 X10'3 (0-0.9); MONOCYTES % (AUTO) 11.5 % (2-12); NEUTROPHILS # (AUTO) 2.6 X10'3 (1.8-7.7); PLATELET COUNT 225 X10'3 (140-440); RED BLOOD COUNT 4.09 X10'6 (4.20-5.60); RED CELL DISTRIBUTION WIDTH 13.1 % (11.5-14.5); WHITE BLOOD COUNT 4.2 X10'3 (4.5-11.0)
[2021-04-22 06:51] LABS: ALANINE AMINOTRANSFERASE 21 U/L (12-78); ALBUMIN 2.9 G/DL (3.4-5.0); ALBUMIN/GLOBULIN RATIO 0.9 (1.1-1.5); ALKALINE PHOSPHATASE 37 IU/L (46-116); ANION GAP 6 (8-16); ASPARTATE AMINO TRANSFERASE 22 U/L (10-37); BILIRUBIN,TOTAL 0.4 MG/DL (0.1-1.0); BLOOD UREA NITROGEN 13 MG/DL (7-18); BUN/CREATININE RATIO 15.9 (6.6-38.0); CALCIUM 8.6 MG/DL (8.5-10.1); CHLORIDE 108 MMOL/L (99-107); CREATININE 0.82 MG/DL (0.40-0.90); GLUCOSE 140 MG/DL (70-104); MAGNESIUM 1.5 MG/DL (1.5-2.4); SODIUM 141 MMOL/L (135-145); TOTAL CARBON DIOXIDE 27.1 MMOL/L (24-32); eGFR 66 ML/MIN
[2021-04-22] MEDS: docusate sod 100mg capsule PO SCH (07:09)
[2021-04-22] MEDS: flecainide 50mg tablet PO SCH (07:09)
[2021-04-22] MEDS: carVEDilol 12.5mg tablet PO SCH (07:09)
[2021-04-22] MEDS: dextrose 5%-1/2 normal saline 1,000 ML IV SCH (07:09)
[2021-04-22] MEDS: atorvastatin 20mg tablet PO SCH (07:09)
[2021-04-22 08:00] VITALS: BP 130/65
[2021-04-22] MEDS: K and/or MAG REPLACEMENT MC SCH (08:00)
[2021-04-22 11:00] VITALS: BP 142/77
--- NOTE | 2021-04-22 16:00 | NUR ---
Patient discharge in stable condition, IV was taken out, no swelling, no redness not. Discharge instruction given to patient to include following up with Dr. Mohan on 04/26/2021. Patient instructed to call for appointment time. Patient verbalized understanding of instruction given. Patient left unit using a wheelchair, left with family member in a private vehicle.
== END 2021-04-22 15:55 | disposition home or self-care (01) | DRG 389 ==
LOC: ER 10:49 → ED HOLD 18:06 → SUR 3N 23:14
PROVIDERS: ADMIT Internal Medicine; ATTEND Internal Medicine
PROC: BW211ZZ Computerized Tomography (CT Scan) of Abdomen and Pelvis using Low Osmolar Contrast (ICD-10-PCS; principal; 2021-04-18)
PROC: BW211ZZ Computerized Tomography (CT Scan) of Abdomen and Pelvis using Low Osmolar Contrast (ICD-10-PCS; 2021-04-20)
DX: K56.600 Partial intestinal obstruction, unspecified as to cause (principal); I48.20 Chronic atrial fibrillation, unspecified; E11.9 Type 2 diabetes mellitus without complications; K21.9 Gastro-esophageal reflux disease without esophagitis; K44.9 Diaphragmatic hernia without obstruction or gangrene; I10 Essential (primary) hypertension; E78.5 Hyperlipidemia, unspecified; K57.90 Diverticulosis of intestine, part unspecified, without perforation or abscess without bleeding; Z90.49 Acquired absence of other specified parts of digestive tract; Z95.0 Presence of cardiac pacemaker; Z88.1 Allergy status to other antibiotic agents; Z88.5 Allergy status to narcotic agent; Z79.899 Other long term (current) drug therapy; Z79.82 Long term (current) use of aspirin
CPT/HCPCS: 36415; 71045; 74177; 80053; 80061; 81001; 82948; 83036; 83690; 83735; 84484; 85025; 87040; 87081; 96374; 99285; C9113; G0378; J1170; J1650; J1815; J1885; J2270; J2405; J7030; Q9963; Q9967

== ENCOUNTER 2021-09-21 16:57 | Emergency (ER) | payer OTHER ==
[~2021-09-21] VITALS: Ht 167.6 cm; Wt 59.8 kg
[~2021-09-21 16:57] MED LIST changes: -CHOL100025 PO; -GABA300C PO; -HYDR25TA5 PO; +MELO-102 PO; -POTA-197 PO
[2021-09-21 22:51] LABS: BASOPHILS # (AUTO) 0.1 X10'3 (0-0.2); BASOPHILS % (AUTO) 0.6 % (0-1); EOSINOPHILS # (AUTO) 0.1 X10'3 (0-0.9); EOSINOPHILS % (AUTO) 0.8 % (0-6); HEMATOCRIT 35.2 % (35.0-45.0); HEMOGLOBIN 12.3 g/dl (12.0-16.0); LYMPHOCYTES # (AUTO) 1.6 X10'3 (1.1-4.8); LYMPHOCYTES % (AUTO) 17.5 % (21-51); MEAN CORPUSCULAR HEMOGLOBIN 28.9 PG (27.0-31.0); MEAN CORPUSCULAR HGB CONC 34.8 g/dL (33.0-36.5); MEAN CORPUSCULAR VOLUME 83.1 FL (78-98); MEAN PLATELET VOLUME 6.5 FL (7.4-10.4); MONOCYTES # (AUTO) 0.7 X10'3 (0-0.9); MONOCYTES % (AUTO) 7.9 % (2-12); NEUTROPHILS # (AUTO) 6.6 X10'3 (1.8-7.7); NEUTROPHILS % (AUTO) 73.2 % (42-75); PLATELET COUNT 266 X10'3 (140-440); RED BLOOD COUNT 4.24 X10'6 (4.20-5.60); RED CELL DISTRIBUTION WIDTH 13.8 % (11.5-14.5)
[2021-09-21 23:00] LABS: ALANINE AMINOTRANSFERASE 15 U/L (12-78); ALBUMIN 3.6 G/DL (3.4-5.0); ALBUMIN/GLOBULIN RATIO 1.1 (1.1-1.5); ALKALINE PHOSPHATASE 42 IU/L (46-116); ANION GAP 8 (8-16); ASPARTATE AMINO TRANSFERASE 18 U/L (10-37); BILIRUBIN,TOTAL 0.5 MG/DL (0.1-1.0); BLOOD UREA NITROGEN 16 MG/DL (7-18); BUN/CREATININE RATIO 22.2 (6.6-38.0); CALCIUM 8.9 MG/DL (8.5-10.1); CHLORIDE 93 MMOL/L (99-107); CREATININE 0.72 MG/DL (0.40-0.90); GLUCOSE 117 MG/DL (70-104); SODIUM 128 MMOL/L (135-145); TOTAL CARBON DIOXIDE 27.5 MMOL/L (24-32); TOTAL PROTEIN 6.9 G/DL (6.4-8.2); eGFR 77 ML/MIN
[2021-09-21] MEDS ORDERED: normal saline 1000ML IV soln IVB ONE (23:15)
[2021-09-21] MEDS ORDERED: ondansetron/PF 4mg/2ml inj IV ONE (23:15)
[2021-09-21] MEDS ORDERED: fentaNYL/PF 50MCG/1 ML 2ML syringe IV ONE (23:25)
[2021-09-21] MEDS ORDERED: DOXY100C76 PO (23:29)
[2021-09-21] MEDS ORDERED: METR-159 PO (23:29)
[2021-09-21] MEDS ORDERED: TRAM50TA2 PO (23:29)
--- NOTE | 2021-09-22 02:16 | NUR ---
daughter shasta called at [phone] to pick patient up form the ER
[2021-09-22 02:37] VITALS: BP 136/64
== END 2021-09-22 02:41 | disposition home or self-care (01) ==
LOC: ER 16:59
DX: E86.0 Dehydration (principal); E87.1 Hypo-osmolality and hyponatremia; R11.0 Nausea; R10.32 Left lower quadrant pain; K59.00 Constipation, unspecified; R19.7 Diarrhea, unspecified; I48.91 Unspecified atrial fibrillation; I10 Essential (primary) hypertension; K21.9 Gastro-esophageal reflux disease without esophagitis; E11.9 Type 2 diabetes mellitus without complications; G89.29 Other chronic pain; Z90.89 Acquired absence of other organs; Z90.49 Acquired absence of other specified parts of digestive tract; Z88.1 Allergy status to other antibiotic agents; Z88.5 Allergy status to narcotic agent; Z79.82 Long term (current) use of aspirin; Z79.2 Long term (current) use of antibiotics; Z79.899 Other long term (current) drug therapy
CPT/HCPCS: 36415; 74018; 80053; 85025; 96374; 96375; 99284; J2405; J3010; J7030

== ENCOUNTER 2022-06-16 13:27 | Emergency (ER) | payer OTHER ==
[~2022-06-16] VITALS: Ht 167.6 cm; Wt 65.0 kg
[2022-06-16 14:24] LABS: BASOPHILS % (AUTO) 0.2 % (0-1); EOSINOPHILS % (AUTO) 0.6 % (0-6); HEMATOCRIT 37.5 % (35.0-45.0); HEMOGLOBIN 12.6 g/dl (12.0-16.0); LYMPHOCYTES # (AUTO) 1.1 X10'3 (1.1-4.8); LYMPHOCYTES % (AUTO) 16.8 % (21-51); MEAN CORPUSCULAR HEMOGLOBIN 28.4 PG (27.0-31.0); MEAN CORPUSCULAR HGB CONC 33.7 g/dL (33.0-36.5); MEAN CORPUSCULAR VOLUME 84.3 FL (78-98); MEAN PLATELET VOLUME 6.1 FL (7.4-10.4); MONOCYTES # (AUTO) 0.6 X10'3 (0-0.9); MONOCYTES % (AUTO) 8.5 % (2-12); NEUTROPHILS % (AUTO) 73.9 % (42-75); PLATELET COUNT 233 X10'3 (140-440); RED BLOOD COUNT 4.45 X10'6 (4.20-5.60); RED CELL DISTRIBUTION WIDTH 14.8 % (11.5-14.5); WHITE BLOOD COUNT 6.7 X10'3 (4.5-11.0)
[2022-06-16 14:43] LABS: ALANINE AMINOTRANSFERASE 20 U/L (12-78); ALBUMIN 3.4 G/DL (3.4-5.0); ALBUMIN/GLOBULIN RATIO 1.1 (1.1-1.5); ANION GAP 7 (8-16); ASPARTATE AMINO TRANSFERASE 19 U/L (10-37); BILIRUBIN,TOTAL 0.4 MG/DL (0.1-1.0); BLOOD UREA NITROGEN 17 MG/DL (7-18); BUN/CREATININE RATIO 17.9 (6.6-38.0); CHLORIDE 92 MMOL/L (99-107); CREATININE 0.95 MG/DL (0.40-0.90); GLUCOSE 130 MG/DL (70-104); POTASSIUM 4.1 MMOL/L (3.5-5.1); SODIUM 127 MMOL/L (135-145); TOTAL CARBON DIOXIDE 27.6 MMOL/L (24-32); TOTAL PROTEIN 6.5 G/DL (6.4-8.2); eGFR 56 ML/MIN
[2022-06-16 14:44] LABS: ALKALINE PHOSPHATASE 45 IU/L (46-116)
[2022-06-16] MEDS ORDERED: LIDOcaine 1% W/epiNEPHrine 1:100,000 20ml vial SQ ONE (17:25)
[2022-06-16 18:40] VITALS: BP 150/76
== END 2022-06-16 18:41 | disposition home or self-care (01) ==
LOC: ER 13:28
DX: S01.111A Laceration without foreign body of right eyelid and periocular area, initial encounter (principal); R53.1 Weakness; I48.91 Unspecified atrial fibrillation; I10 Essential (primary) hypertension; K21.9 Gastro-esophageal reflux disease without esophagitis; E11.9 Type 2 diabetes mellitus without complications; G89.29 Other chronic pain; Z90.89 Acquired absence of other organs; Z90.49 Acquired absence of other specified parts of digestive tract; Z88.1 Allergy status to other antibiotic agents; Z88.5 Allergy status to narcotic agent; Z79.82 Long term (current) use of aspirin; Z79.899 Other long term (current) drug therapy; W19.XXXA Unspecified fall, initial encounter; Y93.89 Activity, other specified; Y92.89 Other specified places as the place of occurrence of the external cause; Y99.8 Other external cause status
CPT/HCPCS: 12011; 36415; 70450; 71045; 72125; 80053; 83880; 84484; 85025; 93005; 99285; J3490; J7030

== ENCOUNTER 2022-06-27 19:03 | Emergency (ER) | payer OTHER ==
[2022-06-27 19:45] LABS: ALANINE AMINOTRANSFERASE 23 U/L (12-78); ALBUMIN 3.6 G/DL (3.4-5.0); ALKALINE PHOSPHATASE 55 IU/L (46-116); ANION GAP 7 (8-16); ASPARTATE AMINO TRANSFERASE 20 U/L (10-37); BILIRUBIN,TOTAL 0.2 MG/DL (0.1-1.0); BLOOD UREA NITROGEN 16 MG/DL (7-18); BUN/CREATININE RATIO 21.6 (6.6-38.0); CALCIUM 8.9 MG/DL (8.5-10.1); CHLORIDE 91 MMOL/L (99-107); CREATININE 0.74 MG/DL (0.40-0.90); GLUCOSE 106 MG/DL (70-104); MAGNESIUM 1.4 MG/DL (1.5-2.4); POTASSIUM 3.7 MMOL/L (3.5-5.1); SODIUM 127 MMOL/L (135-145); TOTAL CARBON DIOXIDE 29.4 MMOL/L (24-32); TOTAL PROTEIN 7.1 G/DL (6.4-8.2); eGFR 74 ML/MIN
[2022-06-27 21:31] LABS: BASOPHILS % (AUTO) 0.6 % (0-1); EOSINOPHILS # (AUTO) 0.1 X10'3 (0-0.9); HEMATOCRIT 39.1 % (35.0-45.0); HEMOGLOBIN 13.1 g/dl (12.0-16.0); LYMPHOCYTES # (AUTO) 1.1 X10'3 (1.1-4.8); LYMPHOCYTES % (AUTO) 25.3 % (21-51); MEAN CORPUSCULAR HGB CONC 33.6 g/dL (33.0-36.5); MEAN CORPUSCULAR VOLUME 83.3 FL (78-98); MONOCYTES # (AUTO) 0.4 X10'3 (0-0.9); MONOCYTES % (AUTO) 8.9 % (2-12); NEUTROPHILS # (AUTO) 2.8 X10'3 (1.8-7.7); NEUTROPHILS % (AUTO) 63.2 % (42-75); PLATELET COUNT 318 X10'3 (140-440); RED CELL DISTRIBUTION WIDTH 15.1 % (11.5-14.5); WHITE BLOOD COUNT 4.4 X10'3 (4.5-11.0)
[2022-06-28 00:50] VITALS: BP 169/98
== END 2022-06-28 00:53 | disposition home or self-care (01) ==
LOC: ER 19:04
DX: I10 Essential (primary) hypertension (principal); R53.1 Weakness; R55 Syncope and collapse; I51.9 Heart disease, unspecified; K21.9 Gastro-esophageal reflux disease without esophagitis; E11.9 Type 2 diabetes mellitus without complications; G89.29 Other chronic pain; Z98.890 Other specified postprocedural states; Z88.1 Allergy status to other antibiotic agents; Z90.49 Acquired absence of other specified parts of digestive tract
CPT/HCPCS: 36415; 80053; 83735; 83880; 84484; 85025; 93005; 99284

== ENCOUNTER 2022-07-29 10:52 | Emergency (ER) | payer OTHER ==
[~2022-07-29] VITALS: Ht 167.6 cm; Wt 57.2 kg
[2022-07-29 11:48] LABS: BASOPHILS % (AUTO) 0.4 % (0-1); EOSINOPHILS % (AUTO) 0.2 % (0-6); HEMATOCRIT 38.4 % (35.0-45.0); HEMOGLOBIN 12.9 g/dl (12.0-16.0); LYMPHOCYTES # (AUTO) 1.4 X10'3 (1.1-4.8); MEAN CORPUSCULAR HEMOGLOBIN 27.7 PG (27.0-31.0); MEAN CORPUSCULAR HGB CONC 33.5 g/dL (33.0-36.5); MEAN CORPUSCULAR VOLUME 82.7 FL (78-98); MEAN PLATELET VOLUME 6.6 FL (7.4-10.4); MONOCYTES # (AUTO) 0.8 X10'3 (0-0.9); MONOCYTES % (AUTO) 8.3 % (2-12); NEUTROPHILS # (AUTO) 7.8 X10'3 (1.8-7.7); NEUTROPHILS % (AUTO) 77.1 % (42-75); PLATELET COUNT 308 X10'3 (140-440); RED BLOOD COUNT 4.64 X10'6 (4.20-5.60); RED CELL DISTRIBUTION WIDTH 14.9 % (11.5-14.5); WHITE BLOOD COUNT 10.1 X10'3 (4.5-11.0)
[2022-07-29 12:07] LABS: ALANINE AMINOTRANSFERASE 17 U/L (12-78); ALBUMIN 3.7 G/DL (3.4-5.0); ALKALINE PHOSPHATASE 58 IU/L (46-116); ANION GAP 9 (8-16); ASPARTATE AMINO TRANSFERASE 17 U/L (10-37); BILIRUBIN,TOTAL 0.6 MG/DL (0.1-1.0); BLOOD UREA NITROGEN 13 MG/DL (7-18); BUN/CREATININE RATIO 18.3 (6.6-38.0); CALCIUM 9.7 MG/DL (8.5-10.1); CHLORIDE 96 MMOL/L (99-107); CREATININE 0.71 MG/DL (0.40-0.90); GLUCOSE 116 MG/DL (70-104); LIPASE 85 U/L (73-393); SODIUM 135 MMOL/L (135-145); TOTAL CARBON DIOXIDE 29.9 MMOL/L (24-32); TOTAL PROTEIN 7.3 G/DL (6.4-8.2); eGFR 78 ML/MIN
[2022-07-29] MEDS ORDERED: morphine 2 MG/ML inj. syringe IV ONE (14:35)
[2022-07-29] MEDS ORDERED: normal saline 1000ML IV soln IVB ONE (14:35)
[2022-07-29] MEDS ORDERED: piperacillin/tazo 3.375gm/50ml 50 ML IV ONE (14:50)
[2022-07-29] MEDS ORDERED: HYDROcodone/acetaminophen 5mg/325mg tablet PO ONE (14:50)
[2022-07-29] MEDS ORDERED: AMOX-580 PO (16:19)
[2022-07-29] MEDS ORDERED: ONDA4TAB12 PO (16:19)
[2022-07-29] MEDS ORDERED: TRAM50TA2 PO (16:19)
[2022-07-29 16:47] VITALS: BP 127/63
== END 2022-07-29 16:49 | disposition home or self-care (01) ==
LOC: ER 10:52
DX: K57.92 Diverticulitis of intestine, part unspecified, without perforation or abscess without bleeding (principal); I11.9 Hypertensive heart disease without heart failure; E78.00 Pure hypercholesterolemia, unspecified; E11.9 Type 2 diabetes mellitus without complications; G89.29 Other chronic pain; Z90.49 Acquired absence of other specified parts of digestive tract; Z88.1 Allergy status to other antibiotic agents; Z79.899 Other long term (current) drug therapy; Z79.1 Long term (current) use of non-steroidal anti-inflammatories (NSAID); Z79.2 Long term (current) use of antibiotics
CPT/HCPCS: 36415; 74176; 80053; 83605; 83690; 84145; 85025; 87040; 96365; 99285; J2543; J7030

== ENCOUNTER 2023-05-07 17:46 | Inpatient (IN) | payer OTHER ==
[~2023-05-07] VITALS: Ht 160 cm; Wt 63.6 kg
[~2023-05-07 17:46] MED LIST changes: +ONDA4TAB12 PO
--- NOTE | 2023-05-07 19:44 | NUR ---
NOTIFIED DR FELICIANO THAT PT HAS + HEAD STRIKE & LOC BUT NO BLD THINNER PT C/O 10/10 UPPER BACK PAIN .VERBAL ORDER TO ORDER CT HEAD AND CT C- SPINE.
--- NOTE | 2023-05-07 19:45 | NUR ---
pt states she takes tramadol for chronic back pain at home and is requesting fentanyl. notified.
[2023-05-07] MEDS ORDERED: fentaNYL/PF 50MCG/1 ML 2ML syringe IV ONE ×2 (20:20→21:10)
[2023-05-07 20:37] LABS: BASOPHILS % (AUTO) 0.4 % (0-1); EOSINOPHILS # (AUTO) 0.1 X10'3 (0-0.9); EOSINOPHILS % (AUTO) 0.9 % (0-6); HEMATOCRIT 33.2 % (35.0-45.0); HEMOGLOBIN 10.8 g/dl (12.0-16.0); LYMPHOCYTES # (AUTO) 0.8 X10'3 (1.1-4.8); LYMPHOCYTES % (AUTO) 8.4 % (21-51); MEAN CORPUSCULAR HEMOGLOBIN 22.7 PG (27.0-31.0); MEAN CORPUSCULAR HGB CONC 32.5 g/dL (33.0-36.5); MEAN PLATELET VOLUME 6.2 FL (7.4-10.4); MONOCYTES # (AUTO) 0.4 X10'3 (0-0.9); MONOCYTES % (AUTO) 4.6 % (2-12); NEUTROPHILS # (AUTO) 8.1 X10'3 (1.8-7.7); NEUTROPHILS % (AUTO) 85.7 % (42-75); PLATELET COUNT 340 X10'3 (140-440); RED BLOOD COUNT 4.75 X10'6 (4.20-5.60); RED CELL DISTRIBUTION WIDTH 18.5 % (11.5-14.5); WHITE BLOOD COUNT 9.5 X10'3 (4.5-11.0)
[2023-05-07 20:51] LABS: ALANINE AMINOTRANSFERASE 19 U/L (12-78); ALBUMIN 3.3 G/DL (3.4-5.0); ALKALINE PHOSPHATASE 47 IU/L (46-116); ANION GAP 7 (8-16); ASPARTATE AMINO TRANSFERASE 22 U/L (10-37); BILIRUBIN,TOTAL 0.3 MG/DL (0.1-1.0); BLOOD UREA NITROGEN 13 MG/DL (7-18); BUN/CREATININE RATIO 17.8 (10.0-20.0); CALCIUM 8.6 MG/DL (8.5-10.1); CHLORIDE 99 MMOL/L (99-107); CREATININE 0.73 MG/DL (0.40-0.90); GLUCOSE 112 MG/DL (70-104); POTASSIUM 3.9 MMOL/L (3.5-5.1); SODIUM 134 MMOL/L (135-145); TOTAL CARBON DIOXIDE 27.7 MMOL/L (24-32); TOTAL PROTEIN 6.6 G/DL (6.4-8.2); eCRCL 44 ML/MIN; eGFR 75 ML/MIN
--- NOTE | 2023-05-07 21:20 | NUR ---
tp ct and xray
--- NOTE | 2023-05-07 21:26 | NUR ---
I AGREE WITH ILDEFONSO GARZON 'S DOCUMENTATION.
--- NOTE | 2023-05-07 21:35 | NUR ---
redness to right occipital region of head/ neck per ems. unable to visualize d/t c-collar.
[2023-05-07 22:21] LABS: BILIRUBIN,URINE NEGATIVE (Neg); CLARITY,URINE SLIGHTLY CLOUDY (Clear); COLOR,URINE YELLOW (Yellow); GLUCOSE, URINE NEGATIVE (Neg); KETONES,URINE NEGATIVE (Neg); LEUKOCYTE ESTERASE ,URINE SMALL (Neg); NITRITES, URINE NEGATIVE (Neg); OCCULT BLOOD,URINE NEGATIVE (Neg); PH,URINE 6.5 (4.8-8.0); PROTEIN,URINE NEGATIVE (Neg); UROBILINOGEN,URINE 0.2 E.U/dL (0.2-1.0)
[2023-05-07 22:30] LABS: UA COLLECTION TYPE VOIDED
[2023-05-07 22:32] LABS: BACTERIA,URINE FEW /HPF (Neg); MUCUS STRANDS FEW /LPF (Neg); SQUAMOUS EPITHELIAL CELL,UR FEW /LPF (FEW)
[2023-05-07 22:33] LABS: TRANSITIONAL EPI CELLS,URINE FEW /HPF; WBC CLUMPS,URINE FEW /HPF (NEGATIVE)
--- NOTE | 2023-05-07 23:25 | NUR ---
CALL FROM DR. FELICIANO WHO NOTIFIED THIS NURSE THAT SHE WOULD BE ADMITTING PT. NOTIFIED PROVIDER OF HOLDING PT MED D/T DESATURATION DOWN TO 91-93% RA AFTER LAST DOSE OF FENTANYL. PER MD PUT PT ON 2L NC AND OK TO ADMIN 2ND DOSE. CRN NOTIFIED TO ADMIM 2ND DOSE. PT PLACED ON SUPPLEMENTAL O2 2L NC, SATS IMPROVED TO 98%.
--- NOTE | 2023-05-07 23:36 | NUR ---
pts daughter shasta phone number [phone]
[2023-05-08] MEDS ORDERED: ondansetron/PF 4mg/2ml inj IV PRN (00:40)
[2023-05-08] MEDS ORDERED: bisacodyl 10mg suppository rectal RC PRN (00:40)
[2023-05-08] MEDS ORDERED: diphenhydrAMINE 50 mg/ml inj IV PRN (00:40)
[2023-05-08] MEDS ORDERED: mag hydrox/Alum hydrox/simeth 30ml oral suspension PO PRN (00:40)
[2023-05-08] MEDS ORDERED: acetaminophen 325mg tablet PO PRN ×2 (00:40)
[2023-05-08] MEDS ORDERED: acetaminophen 650mg rectal suppository RC PRN (00:40)
[2023-05-08] MEDS ORDERED: HYDROmorphone inj. 0.5 MG/0.5 ML DISP.SYRIN IV PRN (00:40)
[2023-05-08] MEDS ORDERED: HYDROcodone/acetaminophen 5mg/325mg tablet PO PRN (00:40)
[2023-05-08] MEDS ORDERED: MESSAGE TO PHARMACY PO ONE (00:55)
[2023-05-08] MEDS ORDERED: DEXTROSE 15 GM of carb/4 tabs (each vial/BOTTLE has 4 tablets) PO PRN ×2 (00:55)
[2023-05-08] MEDS ORDERED: dextrose 50%-water 50ml dispensing syringe IV PRN ×2 (00:55)
[2023-05-08] MEDS ORDERED: glucagon, human recombinant 1mg kit SUBCUT PRN (00:55)
[2023-05-08] MEDS ORDERED: insulin Lispro (HumaLOG) vial - multi-dose SQ SCH (00:55)
[2023-05-08] MEDS: niCARDipine-NS 40mg/200ml IVPB 200 ML IV SCH ×2 (01:05→02:08)
[2023-05-08] MEDS: normal saline 1000ml 1,000 ML IV SCH ×3 (01:29→20:40)
[2023-05-08 01:30] LABS: HEMOGLOBIN A1C 6.4 % (4.5-6.2)
[2023-05-08 01:41] LABS: MAGNESIUM 1.4 MG/DL (1.5-2.4); PHOSPHORUS 3.2 MG/DL (2.3-4.5); THYROID STIMULATING HORMONE 1.18 ulU/ml (0.34-4.50)
[2023-05-08 01:51] LABS: APTT 26 SECONDS (22-32); D-DIMER 21.79 MG/L FEU (0-0.50)
[2023-05-08] MEDS: HYDROmorphone inj. 0.5 MG/0.5 ML DISP.SYRIN IV PRN ×2 (01:52→08:15)
[2023-05-08] MEDS ORDERED: labetalol 20mg/4ml (5mg/ml) syringe IV STA (02:01)
--- NOTE | 2023-05-08 02:11 | NUR ---
cardene was changed to labetolol
[2023-05-08] MEDS ORDERED: labetalol 20mg/4ml (5mg/ml) syringe IV ONE (03:40)
[2023-05-08] MEDS: heparin, porcine 5000 units/ml vial SQ SCH ×2 (08:13→22:19)
[2023-05-08] MEDS: docusate sod 100mg capsule PO SCH ×2 (08:15→22:19)
--- NOTE | 2023-05-08 08:58 | NUR ---
pt repositioned and given warm blankets. pure wick placed
--- NOTE | 2023-05-08 09:25 | NUR ---
Spoke with MD Velarde this morning - stated to hold Nicardipine drip at this time given SBPs in 160's for most of this morning. also stating that he will consult with Dr. Cross and notify nurse later.
[2023-05-08] MEDS ORDERED: LORazepam 2 mg/ml vial IV ONE (10:00)
[2023-05-08] MEDS: CefTRIAXone/D5W-Rocephin 1gm 50 ML IV SCH (10:09)
[2023-05-08] MEDS ORDERED: LORazepam 2 mg/ml vial IV PRN (10:10)
[2023-05-08] MEDS ORDERED: flecainide 50mg tablet PO ONE (10:15)
[2023-05-08] MEDS ORDERED: carVEDilol 12.5mg tablet PO ONE (10:15)
[2023-05-08] MEDS: HYDROcodone/acetaminophen 10/325mg tab PO PRN ×2 (11:13→22:27)
--- NOTE | 2023-05-08 11:34 | NUR ---
SPOKE WITH MD ROGERS REGARDING PT'S SBP'S. MD STATING HE WILL ADD ON HYDRALAZINE AND ADDITIONAL PAIN MEDS. IF SBPS STAY >200, CALL MD FOR ADDITIONAL MEASURES.
[2023-05-08] MEDS ORDERED: meperidine/PF 25mg/ml syringe IV PRN (11:35)
[2023-05-08] MEDS ORDERED: ketorolac tromethamine 15mg/ml inj. IV ONE (11:40)
[2023-05-08] MEDS ORDERED: iohexol 350MG/ML 100ml bottle IV ONE (11:46)
--- NOTE | 2023-05-08 12:16 | NUR ---
Pt repositioned, linens changed
--- NOTE | 2023-05-08 12:17 | NUR ---
Dean pulliam in ED - 05/08/23 at 1254 [email or web address] pt [address]
--- NOTE | 2023-05-08 13:40 | NUR ---
PT TO CT
[2023-05-08] MEDS ORDERED: LOSA-415 PO (14:06)
[2023-05-08] MEDS ORDERED: CHOL500050 PO (14:06)
[2023-05-08] MEDS ORDERED: [UNRECOGNIZED DRUG - CODE] (14:06)
--- NOTE | 2023-05-08 15:02 | NUR ---
Pt sleeping comfortably, no distress noted, will continue to monitor
[2023-05-08] MEDS ORDERED: nitroGLYCERIN 0.4mg SUBLingual tab SL PRN (16:55)
[2023-05-08] MEDS: ketorolac tromethamine 15mg/ml inj. IV SCH (17:53)
[2023-05-08] MEDS: carVEDilol 12.5mg tablet PO SCH (17:53)
--- NOTE | 2023-05-08 19:54 | NUR ---
DR. Younger in to see Pt w/ new order for losartan potassium 25mg 1 tab po qday starting tomorrow morning 05/09/23 at 0800. spoke w/ pt and pt daughter who verbalized understanding and agreeable w/ POC. order carried out.
--- NOTE | 2023-05-08 20:02 | NUR ---
pt ate 1/3 of tossed green salad for dinner and a sip of tea w/ no carbs to note. pt refuased to eat anymore, alternates offered and refused.
[2023-05-08] MEDS ORDERED: temazepam 15mg capsule PO PRN (21:00)
[2023-05-08] MEDS: insulin glargine (Lantus) pen - multi-dose SQ SCH (21:00)
[2023-05-08] MEDS: flecainide 50mg tablet PO SCH (22:18)
[2023-05-08] MEDS: aspirin 81mg, enteric-coated 1 TAB TABLET.DR PO SCH (22:18)
[2023-05-08] MEDS: ROSUVASTATIN CALCIUM 5 MG TABLET PO SCH (22:19)
[2023-05-09] VITALS (8 sets, daily range): BP systolic 126–176; BP diastolic 53–81; PULSE 70–71; RESP 12–20; TEMP 97.6–98.7; O2SAT 90–97
[2023-05-09] MEDS: ketorolac tromethamine 15mg/ml inj. IV SCH ×4 (02:44→20:00)
[2023-05-09] MEDS: HYDROcodone/acetaminophen 10/325mg tab PO PRN ×3 (05:35→20:56)
--- NOTE | 2023-05-09 06:24 | NUR ---
GENERAL GROUP REVIEWED BY ANUSHKA ALFARO
[2023-05-09] MEDS: normal saline 1000ml 1,000 ML IV SCH (07:17)
--- NOTE | 2023-05-09 07:29 | NUR ---
Patient in room ED 8. I have received report from Hannah LORA RN and had the opportunity to ask questions and assume patient care.
--- NOTE | 2023-05-09 07:36 | NUR ---
Report called to ANUSHKA Hartman on PCU. Will transfer patient upstairs on hospital bed.
[2023-05-09] MEDS ORDERED: losartan 25mg tablet PO SCH (08:00)
[2023-05-09] MEDS: CefTRIAXone/D5W-Rocephin 1gm 50 ML IV SCH (08:00)
[2023-05-09] MEDS: OMEGA-3/DHA/EPA/FISH OIL 1 EACH CAPSULE.DR PO SCH (09:12)
[2023-05-09] MEDS: pantoprazole 40mg Tablet.DR PO SCH (09:13)
[2023-05-09] MEDS: losartan 25mg tablet PO SCH ×2 (09:13→20:00)
[2023-05-09] MEDS: aspirin 81mg, enteric-coated 1 TAB TABLET.DR PO SCH ×2 (09:13→20:00)
[2023-05-09] MEDS: carVEDilol 12.5mg tablet PO SCH ×2 (09:14→17:50)
[2023-05-09] MEDS: multivitamins, therapeutics tablet PO SCH (09:14)
[2023-05-09] MEDS: docusate sod 100mg capsule PO SCH ×2 (09:14→20:00)
[2023-05-09] MEDS: flecainide 50mg tablet PO SCH ×2 (09:14→20:00)
[2023-05-09] MEDS: heparin, porcine 5000 units/ml vial SQ SCH ×2 (09:17→20:56)
--- NOTE | 2023-05-09 10:06 | NUR ---
I recieved verbal orders from Dr Lane to stop pt's NS @100 due to pt's high BP and pt is drinking well.
[2023-05-09 10:41] LABS: BASOPHILS % (AUTO) 0.3 % (0-1); EOSINOPHILS # (AUTO) 0.3 X10'3 (0-0.9); EOSINOPHILS % (AUTO) 4.8 % (0-6); HEMATOCRIT 32.1 % (35.0-45.0); HEMOGLOBIN 10.3 g/dl (12.0-16.0); LYMPHOCYTES # (AUTO) 0.7 X10'3 (1.1-4.8); LYMPHOCYTES % (AUTO) 12.7 % (21-51); MEAN CORPUSCULAR HEMOGLOBIN 22.7 PG (27.0-31.0); MEAN CORPUSCULAR VOLUME 70.8 FL (78-98); MEAN PLATELET VOLUME 6.6 FL (7.4-10.4); MONOCYTES # (AUTO) 0.5 X10'3 (0-0.9); MONOCYTES % (AUTO) 8.3 % (2-12); NEUTROPHILS % (AUTO) 73.9 % (42-75); PLATELET COUNT 280 X10'3 (140-440); RED BLOOD COUNT 4.54 X10'6 (4.20-5.60); RED CELL DISTRIBUTION WIDTH 17.9 % (11.5-14.5); WHITE BLOOD COUNT 5.4 X10'3 (4.5-11.0)
[2023-05-09 11:05] LABS: ALANINE AMINOTRANSFERASE 14 U/L (12-78); ALBUMIN 2.8 G/DL (3.4-5.0); ALBUMIN/GLOBULIN RATIO 0.9 (1.1-1.5); ALKALINE PHOSPHATASE 43 IU/L (46-116); ANION GAP 10 (8-16); ASPARTATE AMINO TRANSFERASE 16 U/L (10-37); BILIRUBIN,TOTAL 0.5 MG/DL (0.1-1.0); BLOOD UREA NITROGEN 9 MG/DL (7-18); BUN/CREATININE RATIO 15.3 (10.0-20.0); CALCIUM 8.3 MG/DL (8.5-10.1); CHLORIDE 100 MMOL/L (99-107); CHOL/HDL RATIO 1.9 (0.00-4.99); CHOLESTEROL 108 MG/DL (0-200); CREATININE 0.59 MG/DL (0.40-0.90); GLUCOSE 83 MG/DL (70-104); HDL CHOLESTEROL 57 MG/DL (35-60); LDL CHOLESTEROL 42 MG/DL (50-100); POTASSIUM 3.3 MMOL/L (3.5-5.1); SODIUM 136 MMOL/L (135-145); TOTAL CARBON DIOXIDE 26.2 MMOL/L (24-32); TOTAL PROTEIN 5.9 G/DL (6.4-8.2); TRIGLYCERIDES 66 MG/DL (20-135); eCRCL 55 ML/MIN; eGFR > 90 ML/MIN
--- NOTE | 2023-05-09 18:27 | NUR ---
Problems reprioritized. Patient report given, questions answered & plan of care reviewed with Pj GARZON.
[2023-05-09] MEDS ORDERED: magnesium 2GM in 50ml NS 50 ML IV PRN (20:40)
[2023-05-09] MEDS ORDERED: potassium Cl 40MEQ/1/2NS 520ml 520 ML IV PRN (20:40)
[2023-05-09] MEDS ORDERED: potassium Cl 20 mEq SR tablet PO PRN ×2 (20:40)
[2023-05-09] MEDS ORDERED: magnesium 4gm in 100ml NS 100 ML IV PRN (20:40)
[2023-05-09] MEDS ORDERED: magnesium Cl slow-release 64mg tablet PO PRN (20:40)
[2023-05-09] MEDS: insulin glargine (Lantus) pen - multi-dose SQ SCH (21:00)
[2023-05-09] MEDS: ROSUVASTATIN CALCIUM 5 MG TABLET PO SCH (21:00)
[2023-05-09] MEDS: latanoprost 0.005% 2.5ml ophthalmic drops EACHEYE SCH (21:00)
--- NOTE | 2023-05-09 22:55 | NUR ---
pt refused all meds during evening med pass, all she was interested in was her pain pill, norco, explained all meds and what they were used for in order to convince to take, no danyelle, was only able to do blood sugar on pt, pt was 92
[2023-05-10] VITALS (9 sets, daily range): BP systolic 125–186; BP diastolic 48–71; PULSE 70–76; RESP 16–20; TEMP 97.3–98.7; O2SAT 93–96
[2023-05-10] MEDS: ketorolac tromethamine 15mg/ml inj. IV SCH ×2 (02:00→08:30)
--- NOTE | 2023-05-10 05:51 | NUR ---
I agree with all assessment findings by Pj GARZON, pt is stable and all needs are met
--- NOTE | 2023-05-10 06:15 | NUR ---
Patient in room PCU 3010. I have received report from Pj GARZON and had the opportunity to ask questions and assume patient care.
[2023-05-10 06:59] LABS: BASOPHILS % (AUTO) 0.5 % (0-1); EOSINOPHILS # (AUTO) 0.2 X10'3 (0-0.9); EOSINOPHILS % (AUTO) 3.9 % (0-6); HEMATOCRIT 30.6 % (35.0-45.0); LYMPHOCYTES # (AUTO) 0.8 X10'3 (1.1-4.8); LYMPHOCYTES % (AUTO) 13.1 % (21-51); MEAN CORPUSCULAR HEMOGLOBIN 22.8 PG (27.0-31.0); MEAN CORPUSCULAR HGB CONC 32.5 g/dL (33.0-36.5); MEAN CORPUSCULAR VOLUME 70.2 FL (78-98); MEAN PLATELET VOLUME 6.4 FL (7.4-10.4); MONOCYTES # (AUTO) 0.5 X10'3 (0-0.9); MONOCYTES % (AUTO) 9.2 % (2-12); NEUTROPHILS # (AUTO) 4.2 X10'3 (1.8-7.7); NEUTROPHILS % (AUTO) 73.3 % (42-75); PLATELET COUNT 261 X10'3 (140-440); RED BLOOD COUNT 4.36 X10'6 (4.20-5.60); RED CELL DISTRIBUTION WIDTH 18.5 % (11.5-14.5); WHITE BLOOD COUNT 5.8 X10'3 (4.5-11.0)
[2023-05-10 07:20] LABS: ALANINE AMINOTRANSFERASE 11 U/L (12-78); ALBUMIN 2.8 G/DL (3.4-5.0); ALBUMIN/GLOBULIN RATIO 0.9 (1.1-1.5); ALKALINE PHOSPHATASE 42 IU/L (46-116); ANION GAP 11 (8-16); ASPARTATE AMINO TRANSFERASE 28 U/L (10-37); BILIRUBIN,TOTAL 0.5 MG/DL (0.1-1.0); BLOOD UREA NITROGEN 18 MG/DL (7-18); BUN/CREATININE RATIO 27.3 (10.0-20.0); CALCIUM 8.9 MG/DL (8.5-10.1); CHLORIDE 99 MMOL/L (99-107); CREATININE 0.66 MG/DL (0.40-0.90); GLUCOSE 77 MG/DL (70-104); MAGNESIUM 1.5 MG/DL (1.5-2.4); PHOSPHORUS 3.4 MG/DL (2.3-4.5); POTASSIUM 3.6 MMOL/L (3.5-5.1); SODIUM 135 MMOL/L (135-145); TOTAL CARBON DIOXIDE 25.5 MMOL/L (24-32); TOTAL PROTEIN 5.8 G/DL (6.4-8.2); eCRCL 49 ML/MIN; eGFR 85 ML/MIN
[2023-05-10] MEDS: aspirin 81mg, enteric-coated 1 TAB TABLET.DR PO SCH (08:00)
[2023-05-10] MEDS: K and/or MAG REPLACEMENT MC SCH ×2 (08:00→20:00)
[2023-05-10] MEDS: heparin, porcine 5000 units/ml vial SQ SCH ×2 (08:30→16:38)
[2023-05-10] MEDS: CefTRIAXone/D5W-Rocephin 1gm 50 ML IV SCH (08:30)
[2023-05-10] MEDS: carVEDilol 12.5mg tablet PO SCH ×2 (08:32→16:38)
[2023-05-10] MEDS: multivitamins, therapeutics tablet PO SCH (08:32)
[2023-05-10] MEDS: OMEGA-3/DHA/EPA/FISH OIL 1 EACH CAPSULE.DR PO SCH (08:32)
[2023-05-10] MEDS: flecainide 50mg tablet PO SCH ×2 (08:32→20:20)
[2023-05-10] MEDS: docusate sod 100mg capsule PO SCH ×2 (08:32→20:21)
[2023-05-10] MEDS: pantoprazole 40mg Tablet.DR PO SCH (08:32)
[2023-05-10] MEDS: HYDROcodone/acetaminophen 10/325mg tab PO PRN (08:32)
[2023-05-10] MEDS: losartan 25mg tablet PO SCH ×2 (08:33→20:20)
[2023-05-10] MEDS: hydrALAZINE 20mg/ml inj. IV PRN (11:24)
[2023-05-10] MEDS: HYDROmorphone 1 mg/ml syringe IV PRN ×3 (12:48→20:22)
--- NOTE | 2023-05-10 18:00 | NUR ---
Patient in room PCU 3010. I have received report from Camilo REVELES and had the opportunity to ask questions and assume patient care.
--- NOTE | 2023-05-10 18:36 | NUR ---
Problems reprioritized. Patient report given, questions answered & plan of care reviewed with Jacquelin REVELES.
[2023-05-10] MEDS: ondansetron 4mg rapidly disintigrating tab PO PRN (20:21)
[2023-05-10] MEDS: latanoprost 0.005% 2.5ml ophthalmic drops EACHEYE SCH (20:33)
[2023-05-10] MEDS: ROSUVASTATIN CALCIUM 5 MG TABLET PO SCH (21:00)
[2023-05-10] MEDS: insulin glargine (Lantus) pen - multi-dose SQ SCH (21:00)
[2023-05-11] VITALS (9 sets, daily range): BP systolic 123–173; BP diastolic 42–66; PULSE 62–75; RESP 10–18; TEMP 97.1–98.6; O2SAT 94–97
[2023-05-11] MEDS: ondansetron 4mg rapidly disintigrating tab PO PRN ×2 (05:40→20:43)
[2023-05-11] MEDS: HYDROmorphone 1 mg/ml syringe IV PRN ×4 (05:40→20:36)
--- NOTE | 2023-05-11 06:15 | NUR ---
Problems reprioritized. Patient report given, questions answered & plan of care reviewed with Camilo REVELES.
--- NOTE | 2023-05-11 06:19 | NUR ---
Patient in room PCU 3010. I have received report from Jacquelin REVELES and had the opportunity to ask questions and assume patient care.
[2023-05-11 07:26] LABS: BASOPHILS % (AUTO) 0.2 % (0-1); EOSINOPHILS # (AUTO) 0.1 X10'3 (0-0.9); EOSINOPHILS % (AUTO) 1.6 % (0-6); HEMATOCRIT 31.8 % (35.0-45.0); HEMOGLOBIN 10.1 g/dl (12.0-16.0); LYMPHOCYTES # (AUTO) 0.7 X10'3 (1.1-4.8); LYMPHOCYTES % (AUTO) 12.4 % (21-51); MEAN CORPUSCULAR HEMOGLOBIN 22.4 PG (27.0-31.0); MEAN CORPUSCULAR HGB CONC 31.9 g/dL (33.0-36.5); MEAN CORPUSCULAR VOLUME 70.4 FL (78-98); MEAN PLATELET VOLUME 6.7 FL (7.4-10.4); MONOCYTES # (AUTO) 0.6 X10'3 (0-0.9); MONOCYTES % (AUTO) 11.9 % (2-12); NEUTROPHILS # (AUTO) 3.9 X10'3 (1.8-7.7); NEUTROPHILS % (AUTO) 73.9 % (42-75); PLATELET COUNT 282 X10'3 (140-440); RED BLOOD COUNT 4.51 X10'6 (4.20-5.60); RED CELL DISTRIBUTION WIDTH 18.5 % (11.5-14.5); WHITE BLOOD COUNT 5.3 X10'3 (4.5-11.0)
[2023-05-11 07:37] LABS: ALANINE AMINOTRANSFERASE 13 U/L (12-78); ALBUMIN 2.8 G/DL (3.4-5.0); ALBUMIN/GLOBULIN RATIO 0.8 (1.1-1.5); ALKALINE PHOSPHATASE 45 IU/L (46-116); ANION GAP 12 (8-16); ASPARTATE AMINO TRANSFERASE 17 U/L (10-37); BILIRUBIN,TOTAL 0.5 MG/DL (0.1-1.0); BLOOD UREA NITROGEN 27 MG/DL (7-18); BUN/CREATININE RATIO 30.3 (10.0-20.0); CALCIUM 9.2 MG/DL (8.5-10.1); CHLORIDE 99 MMOL/L (99-107); CREATININE 0.89 MG/DL (0.40-0.90); GLUCOSE 94 MG/DL (70-104); MAGNESIUM 1.6 MG/DL (1.5-2.4); PHOSPHORUS 3.7 MG/DL (2.3-4.5); SODIUM 135 MMOL/L (135-145); TOTAL PROTEIN 6.1 G/DL (6.4-8.2); eCRCL 36 ML/MIN; eGFR 60 ML/MIN
[2023-05-11] MEDS: K and/or MAG REPLACEMENT MC SCH ×2 (08:00→20:00)
[2023-05-11] MEDS: CefTRIAXone/D5W-Rocephin 1gm 50 ML IV SCH (08:04)
[2023-05-11] MEDS: heparin, porcine 5000 units/ml vial SQ SCH ×2 (08:05)
[2023-05-11] MEDS: carVEDilol 12.5mg tablet PO SCH ×2 (08:05→17:32)
[2023-05-11] MEDS: docusate sod 100mg capsule PO SCH ×2 (08:06→20:02)
[2023-05-11] MEDS: pantoprazole 40mg Tablet.DR PO SCH (08:06)
[2023-05-11] MEDS: OMEGA-3/DHA/EPA/FISH OIL 1 EACH CAPSULE.DR PO SCH (08:06)
[2023-05-11] MEDS: flecainide 50mg tablet PO SCH ×2 (08:06→20:02)
[2023-05-11] MEDS: multivitamins, therapeutics tablet PO SCH (08:06)
[2023-05-11] MEDS: losartan 25mg tablet PO SCH ×2 (08:06→20:03)
[2023-05-11] MEDS: LIDOcaine 5% patch TP SCH (08:06)
[2023-05-11] MEDS ORDERED: metFORMIN 500mg tablet PO SCH (10:00)
[2023-05-11] MEDS: HYDROcodone/acetaminophen 10/325mg tab PO PRN (16:30)
[2023-05-11] MEDS: hydrALAZINE 20mg/ml inj. IV PRN (18:02)
--- NOTE | 2023-05-11 18:52 | NUR ---
Problems reprioritized. Patient report given, questions answered & plan of care reviewed with Renetta GARZON.
[2023-05-11] MEDS: enoxaparin 40mg/0.4ml syringe SUBCUT SCH (20:04)
[2023-05-11] MEDS: latanoprost 0.005% 2.5ml ophthalmic drops EACHEYE SCH (20:04)
[2023-05-11] MEDS: ROSUVASTATIN CALCIUM 5 MG TABLET PO SCH (20:05)
[2023-05-11] MEDS: insulin glargine (Lantus) pen - multi-dose SQ SCH (21:00)
[2023-05-12] VITALS (8 sets, daily range): BP systolic 123–179; BP diastolic 45–69; PULSE 70–72; RESP 13–22; TEMP 97.2–98.4; O2SAT 92–100
[2023-05-12] MEDS: HYDROcodone/acetaminophen 10/325mg tab PO PRN (03:10)
[2023-05-12] MEDS: ondansetron 4mg rapidly disintigrating tab PO PRN ×2 (03:12→19:52)
--- NOTE | 2023-05-12 06:45 | NUR ---
Patient in room PCU 3010. I have received report from Radha GARZON and had the opportunity to ask questions and assume patient care.Pt sleeping, Call light in reach. Addendum: 05/12/23 at 0647 by Charity Mc RN Amended: Links added.
--- NOTE | 2023-05-12 07:00 | NUR ---
This RN has reviewed the TELECOMMUNICATIONS LINE MECHANIC's physical assessment and has added to it.
[2023-05-12 07:01] LABS: BASOPHILS % (AUTO) 0.2 % (0-1); EOSINOPHILS # (AUTO) 0.1 X10'3 (0-0.9); EOSINOPHILS % (AUTO) 1.4 % (0-6); HEMATOCRIT 32.3 % (35.0-45.0); HEMOGLOBIN 10.4 g/dl (12.0-16.0); LYMPHOCYTES # (AUTO) 0.8 X10'3 (1.1-4.8); LYMPHOCYTES % (AUTO) 14.2 % (21-51); MEAN CORPUSCULAR HEMOGLOBIN 22.6 PG (27.0-31.0); MEAN CORPUSCULAR HGB CONC 32.1 g/dL (33.0-36.5); MEAN CORPUSCULAR VOLUME 70.4 FL (78-98); MEAN PLATELET VOLUME 6.7 FL (7.4-10.4); MONOCYTES # (AUTO) 0.7 X10'3 (0-0.9); MONOCYTES % (AUTO) 11.3 % (2-12); NEUTROPHILS # (AUTO) 4.2 X10'3 (1.8-7.7); NEUTROPHILS % (AUTO) 72.9 % (42-75); PLATELET COUNT 274 X10'3 (140-440); RED BLOOD COUNT 4.59 X10'6 (4.20-5.60); RED CELL DISTRIBUTION WIDTH 18.9 % (11.5-14.5); WHITE BLOOD COUNT 5.8 X10'3 (4.5-11.0)
[2023-05-12 07:21] LABS: ALANINE AMINOTRANSFERASE 8 U/L (12-78); ALBUMIN 2.9 G/DL (3.4-5.0); ALBUMIN/GLOBULIN RATIO 0.9 (1.1-1.5); ALKALINE PHOSPHATASE 46 IU/L (46-116); ANION GAP 10 (8-16); ASPARTATE AMINO TRANSFERASE 22 U/L (10-37); BILIRUBIN,TOTAL 0.4 MG/DL (0.1-1.0); BLOOD UREA NITROGEN 27 MG/DL (7-18); BUN/CREATININE RATIO 33.8 (10.0-20.0); CHLORIDE 99 MMOL/L (99-107); GLUCOSE 104 MG/DL (70-104); MAGNESIUM 1.6 MG/DL (1.5-2.4); PHOSPHORUS 2.9 MG/DL (2.3-4.5); POTASSIUM 3.9 MMOL/L (3.5-5.1); SODIUM 135 MMOL/L (135-145); TOTAL CARBON DIOXIDE 26.5 MMOL/L (24-32); TOTAL PROTEIN 6.2 G/DL (6.4-8.2); eCRCL 40 ML/MIN; eGFR 68 ML/MIN
[2023-05-12] MEDS: hydrALAZINE 20mg/ml inj. IV PRN (07:24)
[2023-05-12] MEDS: HYDROmorphone 1 mg/ml syringe IV PRN ×5 (07:24→20:06)
[2023-05-12 07:46] LABS: ANISOCYTOSIS 2+; ELLIPTOCYTES FEW; MICROCYTOSIS 1+; PLATELET ESTIMATE NORMAL; POIKILOCYTOSIS FEW
[2023-05-12] MEDS: K and/or MAG REPLACEMENT MC SCH ×2 (08:00→20:00)
[2023-05-12] MEDS: LIDOcaine 5% patch TP SCH (09:07)
[2023-05-12] MEDS: flecainide 50mg tablet PO SCH ×2 (09:08→19:52)
[2023-05-12] MEDS: carVEDilol 12.5mg tablet PO SCH ×2 (09:08→17:44)
[2023-05-12] MEDS: OMEGA-3/DHA/EPA/FISH OIL 1 EACH CAPSULE.DR PO SCH (09:08)
[2023-05-12] MEDS: pantoprazole 40mg Tablet.DR PO SCH (09:08)
[2023-05-12] MEDS: losartan 25mg tablet PO SCH ×2 (09:09→19:52)
[2023-05-12] MEDS: multivitamins, therapeutics tablet PO SCH (09:09)
[2023-05-12] MEDS: docusate sod 100mg capsule PO SCH (09:10)
[2023-05-12] MEDS ORDERED: glycerin ADULT rectal suppository RC ONE (11:55)
[2023-05-12] MEDS ORDERED: bisacodyl 10mg suppository rectal RC ONE (13:05)
[2023-05-12] MEDS: magnesium hydroxide 30ml (MOM) UD suspension PO PRN (16:13)
[2023-05-12] MEDS: gabapentin 400mg capsule PO SCH (16:13)
--- NOTE | 2023-05-12 18:01 | NUR ---
Problems reprioritized. Patient report given, questions answered & plan of care reviewed with Radha GARZON. family at bedside. Call light in reach.. Addendum: 05/12/23 at 1802 by Charity Mc RN Amended: Links added.
[2023-05-12] MEDS: enoxaparin 40mg/0.4ml syringe SUBCUT SCH (19:53)
[2023-05-13] VITALS (8 sets, daily range): BP systolic 134–175; BP diastolic 56–80; PULSE 69–77; RESP 13–18; TEMP 97–98.6; O2SAT 94–98
[2023-05-13] MEDS: ROSUVASTATIN CALCIUM 5 MG TABLET PO SCH ×2 (00:19→20:04)
[2023-05-13] MEDS: latanoprost 0.005% 2.5ml ophthalmic drops EACHEYE SCH ×2 (00:19→20:09)
[2023-05-13] MEDS: gabapentin 400mg capsule PO SCH ×4 (00:19→23:06)
--- NOTE | 2023-05-13 01:00 | NUR ---
gave pt soap suds enema. pt had one soft small BM immediately after
--- NOTE | 2023-05-13 03:35 | NUR ---
ENGRAVING SUPERVISOR documentation: I have reviewed and agree with assessment performed and documented by JINA Aleman
[2023-05-13 06:30] LABS: BASOPHILS % (AUTO) 0.2 % (0-1); EOSINOPHILS # (AUTO) 0.1 X10'3 (0-0.9); EOSINOPHILS % (AUTO) 2.5 % (0-6); HEMATOCRIT 31.9 % (35.0-45.0); HEMOGLOBIN 10.3 g/dl (12.0-16.0); LYMPHOCYTES # (AUTO) 0.9 X10'3 (1.1-4.8); LYMPHOCYTES % (AUTO) 16.7 % (21-51); MEAN CORPUSCULAR HGB CONC 32.4 g/dL (33.0-36.5); MEAN PLATELET VOLUME 6.8 FL (7.4-10.4); MONOCYTES # (AUTO) 0.7 X10'3 (0-0.9); MONOCYTES % (AUTO) 13.4 % (2-12); NEUTROPHILS # (AUTO) 3.8 X10'3 (1.8-7.7); NEUTROPHILS % (AUTO) 67.2 % (42-75); PLATELET COUNT 261 X10'3 (140-440); RED BLOOD COUNT 4.48 X10'6 (4.20-5.60); RED CELL DISTRIBUTION WIDTH 18.7 % (11.5-14.5); WHITE BLOOD COUNT 5.6 X10'3 (4.5-11.0)
[2023-05-13 06:41] LABS: ALANINE AMINOTRANSFERASE 14 U/L (12-78); ALBUMIN 2.7 G/DL (3.4-5.0); ALBUMIN/GLOBULIN RATIO 0.9 (1.1-1.5); ALKALINE PHOSPHATASE 43 IU/L (46-116); ANION GAP 5 (8-16); ASPARTATE AMINO TRANSFERASE 30 U/L (10-37); BILIRUBIN,TOTAL 0.4 MG/DL (0.1-1.0); BLOOD UREA NITROGEN 23 MG/DL (7-18); BUN/CREATININE RATIO 37.1 (10.0-20.0); CALCIUM 8.7 MG/DL (8.5-10.1); CHLORIDE 100 MMOL/L (99-107); CREATININE 0.62 MG/DL (0.40-0.90); GLUCOSE 99 MG/DL (70-104); MAGNESIUM 1.7 MG/DL (1.5-2.4); PHOSPHORUS 2.5 MG/DL (2.3-4.5); SODIUM 136 MMOL/L (135-145); TOTAL CARBON DIOXIDE 31.4 MMOL/L (24-32); TOTAL PROTEIN 5.8 G/DL (6.4-8.2); eCRCL 52 ML/MIN; eGFR > 90 ML/MIN
--- NOTE | 2023-05-13 06:41 | NUR ---
Patient in room PCU 3010. I have received report from Neris REVELES and had the opportunity to ask questions and assume patient care.
[2023-05-13] MEDS: K and/or MAG REPLACEMENT MC SCH ×2 (08:00→20:00)
[2023-05-13] MEDS: losartan 25mg tablet PO SCH ×2 (08:16→20:04)
[2023-05-13] MEDS: carVEDilol 12.5mg tablet PO SCH ×2 (08:16→17:38)
[2023-05-13] MEDS: duloxetine 30mg CAPSULE.DR PO SCH (08:17)
[2023-05-13] MEDS: pantoprazole 40mg Tablet.DR PO SCH (08:17)
[2023-05-13] MEDS: flecainide 50mg tablet PO SCH ×2 (08:18→20:04)
[2023-05-13] MEDS: LIDOcaine 5% patch TP SCH (08:20)
[2023-05-13] MEDS: magnesium hydroxide 30ml (MOM) UD suspension PO PRN (08:20)
[2023-05-13 08:31] LABS: PLATELET ESTIMATE NORMAL
[2023-05-13 08:32] LABS: ANISOCYTOSIS 2+; ELLIPTOCYTES 1+; HYPOCHROMASIA 1+; MICROCYTOSIS 1+; SCHISTOCYTES FEW
[2023-05-13] MEDS: ondansetron 4mg rapidly disintigrating tab PO PRN (09:36)
[2023-05-13] MEDS: HYDROmorphone 1 mg/ml syringe IV PRN (09:36)
--- NOTE | 2023-05-13 16:00 | NUR ---
Student Medication Administration: For this medication-pass time frame, all medication were reviewed, dispensed, administered and documented per hospital policy by Tiffany WASHBURN.
--- NOTE | 2023-05-13 16:53 | NUR ---
Student documentation: I have reviewed all interventions, assessments performed and documented by SN Allen from [facility] .
--- NOTE | 2023-05-13 17:26 | NUR ---
PT AND DAUGHTER/CRATER AND PACKER IN ROOM WERE EDUCATED ON HOW TO PREVENT FALLS AT HOME. PT AND DAUGHTER BOTH VERBALIZED UNDERSTANDING.
[2023-05-13] MEDS: enoxaparin 40mg/0.4ml syringe SUBCUT SCH (20:05)
[2023-05-13] MEDS ORDERED: morphine 10mg/0.5ml (conc. morphine) oral syringe PO PRN (20:50)
[2023-05-14 02:00] VITALS: BP 140/56; PULSE 70; RESP 18; TEMP 98.7; O2SAT 95
[2023-05-14 06:00] VITALS: BP 166/71; PULSE 71; RESP 20; TEMP 98.5; O2SAT 96
--- NOTE | 2023-05-14 06:38 | NUR ---
Patient in room PCU 3010. I have received report from Pj GARZON and had the opportunity to ask questions and assume patient care.
[2023-05-14 06:55] LABS: MAGNESIUM 1.7 MG/DL (1.5-2.4); PHOSPHORUS 2.7 MG/DL (2.3-4.5)
[2023-05-14] MEDS: duloxetine 30mg CAPSULE.DR PO SCH (07:49)
[2023-05-14] MEDS: pantoprazole 40mg Tablet.DR PO SCH (07:49)
[2023-05-14] MEDS: flecainide 50mg tablet PO SCH (07:49)
[2023-05-14 07:50] VITALS: BP_SYST 166; PULSE 71
[2023-05-14] MEDS: losartan 25mg tablet PO SCH (07:50)
[2023-05-14] MEDS: LIDOcaine 5% patch TP SCH (07:50)
[2023-05-14] MEDS: gabapentin 400mg capsule PO SCH (07:50)
[2023-05-14] MEDS: carVEDilol 12.5mg tablet PO SCH (07:50)
[2023-05-14 08:00] VITALS: RESP 16
[2023-05-14] MEDS ORDERED: ASPI-1 PO (10:24)
[2023-05-14] MEDS ORDERED: DULO30CA52 PO (10:24)
[2023-05-14] MEDS ORDERED: GABA-535 PO (10:24)
--- NOTE | 2023-05-14 12:50 | NUR ---
Patient discharged home on [facility], patient family in room at the discharge time. Patient iv taken out and not bleeding was noted. patient was taken gome via transportation services.
== END 2023-05-14 11:10 | disposition hospice, home (50) | DRG 189 ==
LOC: ER 17:46 → ED HOLD 05-08 00:46 → PCU 3S 05-09 07:35 → SUR 3N 05-11 12:22 → PCU 3S 05-11 12:23
PROVIDERS: ADMIT Family Medicine; ATTEND Family Medicine
PROC: B32T1ZZ Computerized Tomography (CT Scan) of Left Pulmonary Artery using Low Osmolar Contrast (ICD-10-PCS; principal; 2023-05-08)
PROC: B3201ZZ Computerized Tomography (CT Scan) of Thoracic Aorta using Low Osmolar Contrast (ICD-10-PCS; 2023-05-08)
PROC: B32S1ZZ Computerized Tomography (CT Scan) of Right Pulmonary Artery using Low Osmolar Contrast (ICD-10-PCS; 2023-05-08)
DX: J96.01 Acute respiratory failure with hypoxia (principal); E87.1 Hypo-osmolality and hyponatremia; I16.1 Hypertensive emergency; I50.32 Chronic diastolic (congestive) heart failure; C85.90 Non-Hodgkin lymphoma, unspecified, unspecified site; I48.0 Paroxysmal atrial fibrillation; I49.5 Sick sinus syndrome; E78.00 Pure hypercholesterolemia, unspecified; K21.9 Gastro-esophageal reflux disease without esophagitis; G89.29 Other chronic pain; S70.01XA Contusion of right hip, initial encounter; W18.39XA Other fall on same level, initial encounter; E11.9 Type 2 diabetes mellitus without complications; D64.9 Anemia, unspecified; S29.012A Strain of muscle and tendon of back wall of thorax, initial encounter; I25.10 Atherosclerotic heart disease of native coronary artery without angina pectoris; E87.6 Hypokalemia; K57.90 Diverticulosis of intestine, part unspecified, without perforation or abscess without bleeding; D50.9 Iron deficiency anemia, unspecified; I11.0 Hypertensive heart disease with heart failure; Z79.84 Long term (current) use of oral hypoglycemic drugs; Z79.82 Long term (current) use of aspirin; Z79.899 Other long term (current) drug therapy; Z88.1 Allergy status to other antibiotic agents; Z88.5 Allergy status to narcotic agent; Z90.49 Acquired absence of other specified parts of digestive tract; Z95.0 Presence of cardiac pacemaker; Y93.89 Activity, other specified; Y92.89 Other specified places as the place of occurrence of the external cause; Y99.8 Other external cause status; Q76.49 Other congenital malformations of spine, not associated with scoliosis
CPT/HCPCS: 36415; 70450; 71045; 71275; 72125; 72128; 72131; 73502; 74018; 76700; 80053; 80061; 81001; 82948; 83036; 83735; 83880; 84100; 84132; 84145; 84443; 84484; 85008; 85025; 85379; 85730; 87040; 87081; 87088; 94760; 96374; 97161; 97530; 99285; A4615; G0378; J0360; J0696; J1170; J1644; J1650; J1885; J2060; J3010; J3490; J7030; Q9967